=== PATIENT | male | born 1940 | race Caucasian/White ===

== ENCOUNTER 2016-09-30 13:01 | Emergency (ER) | payer MEDICARE ==
--- NOTE | 2016-09-30 15:30 | UC ---
Ear Complaint HPI - HPI Summary HPI Summary: complaint of sharp short pain in his right ear that happened 4-5 days ago every day since then he has a shoert duration spike of pain in his right ear denies any loss of hearing denies nasal congesion denies allergies denies heaadache, fever, cough - History of Current Complaint Chief Complaint: UCEar Stated Complaint: EAR COMPLAINT Time Seen by Provider: 09/30/16 14:38 Hx Obtained From: Patient - Allergies/Home Medications Allergies/Adverse Reactions: Allergies Allergy/AdvReac Type Severity Reaction Status Date / Time No Known Allergies Allergy Verified 02/09/14 11:23 Home Medications: Home Medications Calcium Carbonate-Vitamin D [Calcium 600 + D 600-400 mg-Unit] 09/30/16 [History ] Finasteride [Proscar] 5 mg 09/30/16 [History] Selegiline HCl [Eldepryl] 09/30/16 [History] PMH/Surg Hx/FS Hx/Imm Hx Previously Healthy: Yes - parkinsons disease Cardiovascular History Of: Reports: Cardiac Disorders - cholesterol Denies: Pacemaker/ICD - Surgical History Surgical History: Yes Surgery Procedure, Year, and Place: VASECTOMY,TONSILS,SKIN BIOPSY 12/06. PROSTATE BIOPSY 08/08 - Family History Known Family History: Negative: Cardiac Disease, Hypertension, Diabetes - Social History Occupation: Retired Lives: With Family Alcohol Use: None Substance Use Type: None Smoking Status (MU): Never Smoked Tobacco Review of Systems Constitutional: Negative Skin: Negative Eyes: Negative ENT: Ear Ache Respiratory: Negative Cardiovascular: Negative Gastrointestinal: Negative Genitourinary: Negative Motor: Negative Neurovascular: Negative Musculoskeletal: Negative Neurological: Negative Psychological: Negative All Other Systems Reviewed And Are Negative: Yes Physical Exam Triage Information Reviewed: Yes Appearance: No Pain Distress, Well-Nourished, Thin Vital Signs: Initial Vital Signs Temp 98.2 F 09/30/16 14:52 Pulse 63 09/30/16 14:52 Resp 18 09/30/16 14:52 BP 172/75 09/30/16 14:52 Pulse Ox 99 09/30/16 14:52 Vital Signs Reviewed: Yes Eyes: Positive: Conjunctiva Clear ENT: Positive: Pharynx normal, TMs normal, Other: - right ear canal with edema and erythema. Negative: Nasal congestion Neck: Positive: No Lymphadenopathy Respiratory: Positive: Lungs clear, Normal breath sounds, No respiratory distress Cardiovascular: Positive: RRR, No Murmur, Pulses Normal Abdomen Description: Positive: Nontender, Soft Bowel Sounds: Positive: Present Musculoskeletal: Positive: No Edema Neurological Exam: Normal Psychological Exam: Normal Skin Exam: Normal Ear Complaint Course/Dx - Differential Dx/Diagnosis Differential Diagnosis/HQI/PQRI: Cerumen Impaction, Otitis Externa, Otitis Media Provider Diagnoses: right otitis externa Discharge - Discharge Plan Condition: Stable Disposition: HOME Prescriptions: Ciproflox/Dexameth OTIC.SUSP* [Ciprodex OTIC.SUSP*] 1 drop RIGHT EAR BID #1 btl Patient Education Materials: Otitis Externa (ED) Referrals: Celio Jessica MD [Primary Care Provider] - Additional Instructions: Your blood pressure is elevated. Please contact your primary care provider within 1 day -4 weeks for further evaluation. Please take antibiotic drops as directed Increase fluids and rest Take acetaminophen for fever or pain Please review your discharge instructions. If your symptoms do not improve please call your primary care provider or return to urgent care.
[2016-09-30 15:52] VITALS: BP 165/99
== END 2016-09-30 15:53 | disposition home or self-care (01) ==
LOC: UCEAST 13:01
DX: H60.91 Unspecified otitis externa, right ear (principal); G20 Parkinson's disease
CPT/HCPCS: 99212; G0463

== ENCOUNTER 2017-02-12 09:16 | Emergency (ER) | payer MEDICARE ==
[2017-02-12 09:24] VITALS: BP 153/92
--- NOTE | 2017-02-12 09:34 | UC ---
Minor Trauma HPI - HPI Summary HPI Summary: FELL OUT OF BED LAST NIGHT. DENIES ANY HEAD INJURY OR HAWKINS. SKINNED HIS KNEEES AND HAS RIGHT RIB CAGE PAIN. CONCERNED ABOUT RIB INJURY. NO SOB, CP OR COUGH. PAIN IS WORSE WITH DEEP BREATHS, COUGH AND MOVEMENT. H/O PARKINSONS. - History of Current Complaint Chief Complaint: UCGeneralIllness Stated Complaint: FELL OUT OF BED Time Seen by Provider: 02/12/17 09:19 Hx Obtained From: Patient, Family/Auto Travel Counselor - Onset/Duration: Sudden Onset, Lasting Hours, Still Present Onset Of Pain: Immediate Pain Intensity: 0 - NO PAIN AT REST Pain Scale Used: 0-10 Numeric Mechanism Of Injury: Fall From A Standing Position - OUT OF BED Aggravating Factor(s): Coughing, Deep Breaths, Movement Alleviating Factor(s): Rest Associated Signs And Symptoms: Negative: Loss Of Consciousness, Ecchymosis - Allergies/Home Medications Allergies/Adverse Reactions: Allergies Allergy/AdvReac Type Severity Reaction Status Date / Time No Known Allergies Allergy Verified 02/12/17 09:24 Home Medications: Home Medications Carbidopa/Levodop 10/100 MG(*) [Sinemet 10/100 TAB(*)] 1.5 tab PO TID 02/12/17 [ History Confirmed 02/12/17] Donepezil TAB* [Aricept 5 MG TAB*] 5 mg PO DAILY 02/12/17 [History Confirmed ] Sennosides [Senexon] 8.8 mg PO BID 02/12/17 [History Confirmed 02/12/17] PMH/Surg Hx/FS Hx/Imm Hx Endocrine History: Dyslipidemia Other Neurological History: PARKINSONS - Surgical History Surgical History: Yes Surgery Procedure, Year, and Place: VASECTOMY,TONSILS,SKIN BIOPSY 12/06. PROSTATE BIOPSY 08/08 - Family History Known Family History: Negative: Cardiac Disease, Hypertension, Diabetes - Social History Alcohol Use: None Substance Use Type: None Smoking Status (MU): Never Smoked Tobacco Review of Systems Constitutional: Negative Skin: Other - ABRASIONS ON KNEES Respiratory: Negative Cardiovascular: Negative Gastrointestinal: Negative Musculoskeletal: Other: - RIGHT RIB CAGE PAIN Neurological: Negative All Other Systems Reviewed And Are Negative: Yes Physical Exam Triage Information Reviewed: Yes Appearance: Well-Appearing, No Pain Distress, Well-Nourished Vital Signs: Initial Vital Signs Temp 99.2 F 02/12/17 09:22 Pulse 71 02/12/17 09:22 Resp 18 02/12/17 09:22 BP 153/92 02/12/17 09:22 Pulse Ox 100 02/12/17 09:22 Vital Signs Reviewed: Yes Eyes: Positive: Conjunctiva Clear ENT: Positive: Hearing grossly normal, TMs normal Neck: Positive: Supple Respiratory: Positive: No respiratory distress, No accessory muscle use Cardiovascular: Positive: Pulses Normal Abdomen Description: Positive: Soft Musculoskeletal: Positive: No Edema, Other: - TTP RIGHT ANTEROLATERAL RIB CAGE Psychological: Positive: Normal Response To Family, Age Appropriate Behavior Skin: Positive: Other - SPFL ABRASIONS BILATERAL KNEES. NO BRUISING OVER RIB CAGE Diagnostics - Radiology RIGHT RIB XRAYS Xray Interpretation: No Acute Changes Radiology Interpretation Completed By: Radiologist Minor Trauma Course/Dx - Differential Dx/Diagnosis Provider Diagnoses: RIGHT RIB CONTUSION Discharge - Discharge Plan Condition: Stable Disposition: HOME Patient Education Materials: Rib Contusion (ED) Referrals: Celio Jessica MD [Primary Care Provider] - If Needed Additional Instructions: RIB XRAYS UNREMARKABLE TODAY. OTC MEDS NEEDED FOR DISCOMFORT. BE SURE TO TAKE DEEP BREATHS YOU ARE ABLE TO KEEP YOUR LUNGS EXPANDED. GO TO THE ER WITHOUT FAIL IF YOU DEVELOP UNEQUAL PUPILS, VISUAL DISTURBANCE, GAIT INSTABILITY, SPEECH DIFFICULTY, NAUSEA/VOMITING, WORSENING HEADACHE, DIZZINESS, CONFUSION, WEAKNESS OR ANY OTHER CONCERNING SYMPTOMS.
--- NOTE | 2017-02-12 10:01 | RAD ---
INDICATION: Fall. Right-sided rib pain. History of old rib fractures. COMPARISON: Left ribs May 20, 2000 TECHNIQUE: Multiple views of the ribs were obtained. FINDINGS: Bones: There is no evidence of acute rib fracture. LUNGS: The lungs are clear. There is no pneumothorax. Pleural spaces: There is no evidence of hemothorax. Other: None IMPRESSION: NO ACUTE RIB FRACTURE.
== END 2017-02-12 10:18 | disposition home or self-care (01) ==
LOC: UCEAST 09:16
DX: S20.20XA Contusion of thorax, unspecified, initial encounter (principal); W06.XXXA Fall from bed, initial encounter; G20 Parkinson's disease; E78.5 Hyperlipidemia, unspecified
CPT/HCPCS: 99211; G0463

== ENCOUNTER 2018-02-13 22:25 | Inpatient (IN) | payer MEDICARE ==
--- OUTSIDE RECORDS SUMMARY | 2018-02-13 23:07 | XMS REPORT ---
:1940 External Reference #:[id number] Author Organization [employer] Address [address] [place] [address] [place] [address] Phone [phone] Care Team Providers Name Role Phone Celio Jessica MD Primary Care Physician Unavailable Payers Type Date Identification Numbers Payment Provider Subscriber Medicare Primary Effective: Policy Number: Medicare Kelechi Peguero Kelton HALLMAN 2003 [id number] PayID: [id number] [address] [place] [address] Medigap Part B Effective: Policy Number: [facility] Kelechi Marielena Kelton 2012 [id number] [facility] PayID: [id number] [address] [place] [address] Commercial Policy Number: [id number] [facility] Kelechi Peguero Kelton HALLMAN PayID: [id number] [place] [address] Problems Date Description Provider Status Onset: 04/01/2014 Coronary arteriosclerosis Katharina Patton M.D. Active Onset: 04/01/2014 Pure hypercholesterolemia Katharina Patton M.D. Active Onset: 04/01/2014 Benign essential hypertension Katharina Patton M.D. Active Onset: 05/14/2014 Dizziness and giddiness Katharina Patton M.D. Active Onset: 05/14/2014 Premature beats Katharina Patton M.D. Active Onset: 07/02/2014 Parkinson's disease Andrea Weiner M.D. Active Onset: 05/12/2015 Hyperlipidemia Katharina Patton M.D. Active Onset: 05/05/2017 Essential hypertension Katharina Patton M.D. Active Onset: 01/25/2018 Prediabetes Annalisa Nails N.P. 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 ETOH Use Denies alcohol use Smoking Patient has never smoked Recreational Drug Use Denies Drug Use Daily Caffeine consumes chocolate frequently Exercise Type/Frequency Exercises regularly Allergies, Adverse Reactions, Alerts Date Description Reaction Status Severity Comments 09/04/2012 NKDA active Medications Medication Date Status Form Strength Qnty SIG Indications Ordering Provider Carbidopa-Levod 02/06/ Active Tablets ER 50-200mg 270ta 1 tab G20 Andrea SAnali opa ER 2018 bs three Regine, times a M.D. day around meal times Donepezil HCL 02/06/ Active Tablets 5mg 90tab 1 every G20 Andrea SAnali 2018 s day Eyal Weiner Myrbetriq 02/05/ Active Tablets ER 50mg 30tab 2 by mouth Annalisa 2017 24HR s every day Jesu N.P. T.E.DAnali 01/11/ Active Misc 2unit wear R60.0 Annalisa Anti-Embolism 2017 s during the Jesu Stockgiorgi Knee day, rt 40 N.P. Length cm long, 40 cm width at calf, lt 40cm long, 38 cm cm width give 2 pairs Miralax 09/29/ Active Powder 17 grams K59.00 Elsie2017 by mouth [place], every day MOLD INSPECTOR as needed Bisacodyl 10/19/ Active Suppository 10mg 12uni as needed Annalisa 2017 ts Jesu, N.P. Senna S 10/10/ Active Tablets 8.6-50mg 240ta 4 tabs by K59.00 Annalisa 2016 bs mouth Jesu, every N.P. morning and 2 tabs by mouth every night Milk Of 05/16/ Active Suspension 400mg/5ML 355ml 30ml po on K59.09 Kerwin Fritz 2015 4th day of Nauruan, no BM MOLD INSPECTOR Fleet Enema 05/16/ Active Enema 7-19GM/11 133ml 1 enema pr K59.in 2016 8ML on 5th day [place], of no BM MOLD INSPECTOR Selegiline HCL 01/07/ Active Capsules 5mg 90cap 1 by mouth Rosmery 2014 s every Gnadt, MOLD INSPECTOR morning Metoprolol 09/04/ Active Tablets ER 25mg 45tab take 1/2 Other Succinate ER 2012 24HR s tab po Ordering daily Provider Aspirin / Active Chewtabs 81mg 1 po qd Unknown 0000 Calcium 600+D / Active Tablets 600-400mg 1 po bid Andrea Gallo 0000 -Unit Eyal Weiner Finasteride / Active Tablets 5mg 90tab 1 by mouth Unknown 0000 s every day Atorvastatin / Active Tablets 20mg 1/2 tablet Unknown 0000 po daily Fish Oil / Active Capsules 1200mg 1 tab po Unknown 0000 qd Daily Chintan / Active Tablets 1 tab po Unknown 0000 qd Lisinopril / Active Tablets 5mg 0.5 tab Unknown 0000 by mouth every day Donepezil HCL 07/21/ Hx Tablets 10mg 90tab 1 by mouth G20 Andrea Gallo 2018 - s every day Regine 02/06/ Eyal 2018 Meclizine HCL 07/05/ Hx Tablets 25mg 14tab 1 tab by Freddy 2018 - s mouth q8 Slick, 02/05/ hours as M.DAnali 2018 needed dizziness Donepezil HCL 02/07/ Hx Tablets 5mg 30tab 1 every G20 Tyson 2016 - s day Dionne, 07/21/ 2018 Carbidopa-Levod 04/13/ Hx Tablets 25-100mg 135ta 1 1/2 by G20 Tyson glover 2016 - bs mouth Dionne, 02/06/ three 2018 times a day before meals Polyethylene 01/07/ Hx Powder [id number] 17gm every K59.09 Andrea Gallo Glycol 3350 2014 - day Regine 10/10/ M.Amarilis 2017 Triamcinolone 09/04/ Hx Cream 0.1% 80gm apply as 691.8 Annamarie Acetonide 2013 - needed Madan 12/31/ chau, 2015 N.P. Lisinopril 09/04/ Hx Tablets 20mg 90tab 1/4 po qd Other 2012 - s Ordering 03/12/ Provider 2014 Atorvastatin 09/04/ Hx Tablets 10mg 30tab 1/2 po qd Other Calcium 2012 - s Ordering 03/31/ Provider 2014 Multi For Him 00/00/ Hx Tablets 1 po qd Unknown 50+ 0000 - 2014 Stool Softener / Hx Capsules (?) 60cap 1 po qam Unknown 0000 - s 2013 Fish / Hx Capsules 300mg 1 by mouth Unknown Oil/Dha/Epa 0000 - every day 2014 Citrucel / Hx Powder 1tablespoo Unknown 0000 - n by mouth 01/06/ bid 2014 Miralax / Hx Packet [id number] 17 gm Unknown 0000 - every day 01/28/ as needed 2014 Salicylic Acid / Hx Cream 40% Pad Unknown 0000 - 2017 Myrbetriq / Hx Tablets ER 25mg 1 tab po Unknown 0000 - 24HR qd 2017 Medications Administered in Office Medication Date Status Form Strength Qnty SIG Indications Ordering Provider Technetium TC Administered Injection Emmanuel Olmos 99M 014 Eyal Wang, Per Unit Dose Up To 40 Millicuries Technetium TC Administered Injection Katharina 99M 014 Don Patton M.D. Per Unit Dose Up To 40 Millicuries Immunizations CPT Code Status Date Vaccine Lot # 33705 Given 04/15/2010 Influenza Virus 3Yrs & Over 57413 Given 07/08/2009 Influenza Virus Vaccine, Pandemic Formulation 03460 Given 08/21/2007 Pneumococcal Conjugate Vaccine 13 Valent For Intramuscular Use Vital Signs Date Vital Result Comment 02/06/2018 Height 68 inches 5'8" Weight 152.00 lb Heart Rate 66 /min BP Systolic 124 mmHg BP Diastolic 80 mmHg BMI (Body Mass Index) 23.1 kg/m2 02/05/2018 Heart Rate 63 /min BP Systolic Sitting 102 mmHg BP Diastolic Sitting 60 mmHg Respiratory Rate 22 /min Body Temperature 96.7 F O2 % BldC Oximetry 96 % 01/25/2018 Weight 152.12 lb Heart Rate 63 /min BP Systolic Sitting 134 mmHg BP Diastolic Sitting 80 mmHg Respiratory Rate 20 /min Body Temperature 97.4 F O2 % BldC Oximetry 99 % 01/23/2018 Weight 153.25 lb Heart Rate 66 /min BP Systolic Sitting 122 mmHg BP Diastolic Sitting 66 mmHg Respiratory Rate 20 /min Body Temperature 97.5 F O2 % BldC Oximetry 99 % 01/22/2018 Weight 149.25 lb Heart Rate 76 /min BP Systolic Sitting 88 mmHg BP Diastolic Sitting 68 mmHg Respiratory Rate 18 /min Body Temperature 97.8 F O2 % BldC Oximetry 98 % 01/11/2018 Weight 150.12 lb Heart Rate 60 /min BP Systolic Sitting 118 mmHg BP Diastolic Sitting 70 mmHg Respiratory Rate 16 /min Body Temperature 96.5 F O2 % BldC Oximetry 96 % 09/29/2017 Weight 151.38 lb Heart Rate 70 /min BP Systolic Sitting 160 mmHg BP Diastolic Sitting 90 mmHg Respiratory Rate 16 /min Body Temperature 97.3 F O2 % BldC Oximetry 100 % 07/21/2017 Height 69 inches 5'9" Weight 151.25 lb Heart Rate 70 /min BP Systolic 108 mmHg BP Diastolic 80 mmHg BMI (Body Mass Index) 22.3 kg/m2 05/05/2017 Weight 154.00 lb with shoes Heart Rate 62 /min BP Systolic Sitting 110 mmHg Lue reg cuff BP Diastolic Sitting 80 mmHg Lue reg cuff BP Systolic Standing 110 mmHg Lue reg cuff BP Diastolic Standing 84 mmHg Lue reg cuff Ejection Fraction 50-60% date 05/29/2002 ECHO 03/03/2017 Weight 155.12 lb Heart Rate 72 /min BP Systolic Sitting 110 mmHg BP Diastolic Sitting 76 mmHg Respiratory Rate 18 /min Body Temperature 96.2 F Pain Level 1 O2 % BldC Oximetry 99 % 02/07/2017 Height 69 inches 5'9" Weight 158.00 lb Heart Rate 68 /min BP Systolic Sitting 110 mmHg BP Diastolic Sitting 72 mmHg Respiratory Rate 16 /min BMI (Body Mass Index) 23.3 kg/m2 12/21/2016 Weight 156.25 lb Heart Rate 72 /min BP Systolic Sitting 100 mmHg BP Diastolic Sitting 62 mmHg Respiratory Rate 18 /min Body Temperature 97.3 F O2 % BldC Oximetry 97 % 11/22/2016 Weight 162.00 lb Heart Rate 76 /min BP Systolic Sitting 126 mmHg BP Diastolic Sitting 70 mmHg Respiratory Rate 20 /min Body Temperature 96.6 F O2 % BldC Oximetry 97 % 11/15/2016 Weight 160.25 lb Heart Rate 76 /min BP Systolic Sitting 138 mmHg BP Diastolic Sitting 84 mmHg Respiratory Rate 20 /min Body Temperature 97.6 F O2 % BldC Oximetry 98 % 10/19/2016 Weight 162.12 lb Heart Rate 63 /min BP Systolic Sitting 98 mmHg BP Diastolic Sitting 60 mmHg Respiratory Rate 20 /min Body Temperature 96.9 F O2 % BldC Oximetry 97 % 10/10/2016 Weight 162.00 lb Heart Rate 57 /min BP Systolic Sitting 114 mmHg BP Diastolic Sitting 80 mmHg Respiratory Rate 18 /min Body Temperature 96.0 F O2 % BldC Oximetry 97 % 07/15/2016 Height 69 inches 5'9" Weight 160.00 lb Heart Rate 60 /min BP Systolic Sitting 116 mmHg BP Diastolic Sitting 74 mmHg Respiratory Rate 14 /min BMI (Body Mass Index) 23.6 kg/m2 05/16/2016 Weight 159.50 lb Heart Rate 76 /min BP Systolic 138 mmHg BP Diastolic 82 mmHg Respiratory Rate 20 /min Body Temperature 97.0 F 04/13/2016 Height 68.75 inches 5'8.75" Weight 156.00 lb Heart Rate 64 /min BP Systolic Sitting 132 mmHg BP Diastolic Sitting 84 mmHg BMI (Body Mass Index) 23.2 kg/m2 03/11/2016 Weight 158.38 lb Heart Rate 58 /min BP Systolic Sitting 124 mmHg BP Diastolic Sitting 78 mmHg Respiratory Rate 18 /min Body Temperature 97.0 F O2 % BldC Oximetry 98 % 10/27/2015 Weight 158.50 lb Heart Rate 68 /min BP Systolic Sitting 128 mmHg BP Diastolic Sitting 68 mmHg Respiratory Rate 20 /min Body Temperature 96.5 F O2 % BldC Oximetry 91 % 07/07/2015 Weight 164.12 lb with shoes Heart Rate 68 /min BP Systolic Sitting 140 mmHg BP Diastolic Sitting 78 mmHg 07/07/2015 Weight 164.12 lb Heart Rate 68 /min BP Systolic Sitting 140 mmHg BP Diastolic Sitting 78 mmHg Respiratory Rate 18 /min Body Temperature 97.9 F O2 % BldC Oximetry 99 % 07/07/2015 Weight 164.12 lb Heart Rate 68 /min BP Systolic Sitting 140 mmHg BP Diastolic Sitting 78 mmHg Respiratory Rate 18 /min 07/07/2015 Height 68.75 inches 5'8.75" Weight 160.00 lb Heart Rate 64 /min BP Systolic Sitting 128 mmHg BP Diastolic Sitting 76 mmHg Respiratory Rate 16 /min BMI (Body Mass Index) 23.8 kg/m2 05/12/2015 Height 68.75 inches 5'8.75" Weight 159.00 lb w/o shoes Heart Rate 66 /min reg BP Systolic Sitting 140 mmHg Rue, reg cuff BP Diastolic Sitting 80 mmHg Rue, reg cuff BP Systolic Standing 116 mmHg Rue, reg cuff BP Diastolic Standing 74 mmHg Rue, reg cuff Respiratory Rate 16 /min BMI (Body Mass Index) 23.6 kg/m2 Ejection Fraction 50-60% as of 05/29/2002 echo 04/01/2015 Weight 159.12 lb Heart Rate 82 /min BP Systolic Sitting 106 mmHg BP Diastolic Sitting 70 mmHg Respiratory Rate 18 /min Body Temperature 97.5 F 03/24/2015 Weight 159.38 lb Heart Rate 75 /min BP Systolic Sitting 138 mmHg BP Diastolic Sitting 70 mmHg Respiratory Rate 16 /min Body Temperature 97.9 F 03/17/2015 Weight 160.12 lb Heart Rate 68 /min BP Systolic Sitting 118 mmHg BP Diastolic Sitting 74 mmHg Respiratory Rate 18 /min Body Temperature 96.3 F O2 % BldC Oximetry 98 % 01/28/2015 Weight 162.50 lb Heart Rate 58 /min BP Systolic Sitting 140 mmHg BP Diastolic Sitting 84 mmHg Respiratory Rate 16 /min Body Temperature 97.1 F 01/07/2015 Height 69 inches 5'9" Weight 164.00 lb Heart Rate 60 /min BP Systolic Sitting 136 mmHg BP Diastolic Sitting 82 mmHg Respiratory Rate 14 /min BMI (Body Mass Index) 24.2 kg/m2 12/31/2014 Weight 165.12 lb Heart Rate 62 /min BP Systolic Sitting 122 mmHg BP Diastolic Sitting 70 mmHg Respiratory Rate 16 /min Body Temperature 96.4 F 07/02/2014 Height 69 inches 5'9" Weight 168.00 lb Heart Rate 64 /min BP Systolic Sitting 136 mmHg BP Diastolic Sitting 70 mmHg Respiratory Rate 16 /min BMI (Body Mass Index) 24.8 kg/m2 05/14/2014 Height 69 inches 5'9" Weight 164.00 lb no shoes Heart Rate 65 /min BP Systolic Sitting 136 mmHg LA, reg cuff BP Diastolic Sitting 82 mmHg LA, reg cuff BP Systolic Standing 136 mmHg LA BP Diastolic Standing 84 mmHg LA Respiratory Rate 16 /min BMI (Body Mass Index) 24.2 kg/m2 04/01/2014 Height 69 inches Weight 164.00 lb without shoes Heart Rate 64 /min BP Systolic Sitting 128 mmHg Ra reg cuff BP Diastolic Sitting 70 mmHg Ra reg cuff BP Systolic Standing 112 mmHg Ra reg cuff BP Diastolic Standing 68 mmHg Ra reg cuff Respiratory Rate 16 /min BMI (Body Mass Index) 24.2 kg/m2 01/01/2014 Height 69 inches 5'9" Weight 163.00 lb Heart Rate 60 /min BP Systolic Sitting 126 mmHg BP Diastolic Sitting 70 mmHg Respiratory Rate 12 /min BMI (Body Mass Index) 24.1 kg/m2 08/29/2013 Heart Rate 78 /min BP Systolic 118 mmHg BP Diastolic 72 mmHg Respiratory Rate 20 /min Body Temperature 97.2 F 07/03/2013 Heart Rate 60 /min BP Systolic Sitting 134 mmHg BP Diastolic Sitting 78 mmHg Respiratory Rate 12 /min 03/12/2013 Height 69 inches 5'9" Weight 166.00 lb Heart Rate 63 /min BP Systolic 116 mmHg BP Diastolic 74 mmHg Respiratory Rate 16 /min Body Temperature 96.4 F BMI (Body Mass Index) 24.5 kg/m2 01/01/2013 Heart Rate 66 /min BP Systolic Sitting 120 mmHg BP Diastolic Sitting 74 mmHg Respiratory Rate 15 /min 12/14/2012 Height 69 inches 5'9" Weight 165.00 lb Heart Rate 76 /min BP Systolic 118 mmHg BP Diastolic 70 mmHg Respiratory Rate 12 /min BMI (Body Mass Index) 24.4 kg/m2 10/02/2012 Height 69 inches 5'9" Weight 165.00 lb Heart Rate 77 /min BP Systolic 110 mmHg BP Diastolic 70 mmHg Respiratory Rate 20 /min Body Temperature 95.9 F BMI (Body Mass Index) 24.4 kg/m2 09/04/2012 Heart Rate 64 /min Apical BP Systolic Sitting 92 mmHg BP Diastolic Sitting 68 mmHg Respiratory Rate 18 /min Body Temperature 97.6 F Results Test Date Test Result H/L Range Note CBC Auto Diff 01/22/2018 White Blood Count 8.4 10^3/uL 3.5-10.8 1 Red Blood Count 4.59 10^6/uL 4.00-5.40 1 Hemoglobin 13.9 g/dL Low 14.0-18.0 1 Hematocrit 40 % Low 42-52 1 Mean Corpuscular Volume 88 fL 80-94 1 Mean Corpuscular Hemoglobin 30 pg 27-31 1 Mean Corpuscular HGB Conc 35 g/dL 31-36 1 Red Cell Distribution Width 13 % 10.5-15 1 Platelet Count 258 10^3/uL 150-450 1 Mean Platelet Volume 8.7 um3 7.4-10.4 1 Abs Neutrophils 5.5 10^3/uL 1.5-7.7 1 Abs Lymphocytes 1.9 10^3/uL 1.0-4.8 1 Abs Monocytes 0.9 10^3/uL High 0-0.8 1 Abs Eosinophils 0.1 10^3/uL 0-0.6 1 Abs Basophils 0.1 10^3/uL 0-0.2 1 Abs Nucleated RBC 0 10^3/uL 1 Granulocyte % 65.5 % 38-83 1 Lymphocyte % 22.4 % Low 25-47 1 Monocyte % 10.2 % High 0-7 1 Eosinophil % 1.3 % 0-6 1 Basophil % 0.6 % 0-2 1 Nucleated Red Blood Cells % 0.1 1 Urinalysis Profile 01/22/2018 Urine Color Jada 1 Urine Appearance Clear 1 Urine Specific [place] 1.021 1.010-1.030 1 Urine pH 5.0 5-9 1 Urine Urobilinogen Negative Negative 1 Urine Ketones Trace Negative 1 Urine Protein Negative Negative 1 Urine Leukocytes Negative Negative 1 Urine Blood Negative Negative 1 Urine Nitrite Negative Negative 1 Urine Bilirubin Negative Negative 1 Urine Glucose Negative Negative 1 Laboratory test finding 01/22/2018 PSA Screening 2.790 ng/mL 0-4.000 1, 2 Comp Metabolic Panel 01/22/2018 Sodium 140 mmol/L 135-145 1 Potassium 4.5 mmol/L 3.5-5.0 1 Chloride 101 mmol/L 101-111 1 Co2 Carbon Dioxide 33 mmol/L High 22-32 1 Anion Gap 6 mmol/L 2-11 1 Glucose 74 mg/dL 70-100 1 Blood Urea Nitrogen 24 mg/dL 6-24 1 Creatinine 1.27 mg/dL High 0.67-1.17 1 BUN/Creatinine Ratio 18.9 8-20 1 Calcium 9.9 mg/dL 8.6-10.3 1 Total Protein 6.7 g/dL 6.4-8.9 1 Albumin 4.4 g/dL 3.2-5.2 1 Globulin 2.3 g/dL 2-4 1 Albumin/Globulin Ratio 1.9 1-3 1 Total Bilirubin 0.70 mg/dL 0.2-1.0 1 Alkaline Phosphatase 53 U/L 34-104 1 Alt 7 U/L 7-52 1 Ast 26 U/L 13-39 1 Egfr Non- 54.7 >60 1 Egfr 66.2 >60 1, 3 Laboratory test finding 01/22/2018 TSH (Thyroid Stim 1.49 mcIU/mL 0.34- 5.60 1, 4 Horm) Hemoglobin A1c (Glyco HGB) 5.7 % High 4.0-5.6 1, 5 Urine Culture And Sensitivities 01/22/2018 Urine Culture SEE RESULT BELOW 1, 6 Urinalysis Profile 07/07/2015 Urine Color Yellow Urine Appearance Clear Urine Specific [place] 1.010 1.010-1.030 Urine pH 6.0 5-9 Urine Urobilinogen Negative Negative Urine Ketones Negative Negative Urine Protein Negative Negative Urine Leukocytes Negative Negative Urine Blood Negative Negative Urine Nitrite Negative Negative Urine Bilirubin Negative Negative Urine Glucose Negative Negative Laboratory test finding 07/07/2015 Urine Culture And SEE RESULT BELOW 7 Sensitivities Laboratory test finding 03/17/2015 Culture Throat SEE RESULT BELOW 8 Urinalysis Profile 02/04/2015 Urine Color Yellow Urine Appearance Clear Urine Specific [place] 1.019 1.010-1.030 Urine pH 7.0 5-9 Urine Urobilinogen Negative Negative Urine Ketones Negative Negative Urine Protein Negative Negative Urine Leukocytes Negative Negative Urine Blood Negative Negative Urine Nitrite Negative Negative Urine Bilirubin Negative Negative Urine Glucose Negative Negative Laboratory test finding 01/28/2015 Urine Culture And SEE RESULT BELOW 9 Sensitivities Urinalysis Profile 01/28/2015 Urine Color Yellow Urine Appearance Clear Urine Specific [place] 1.011 1.010-1.030 Urine pH 6.0 5-9 Urine Urobilinogen Negative Negative Urine Ketones Negative Negative Urine Protein Negative Negative Urine Leukocytes Negative Negative Urine Blood Negative Negative Urine Nitrite Negative Negative Urine Bilirubin Negative Negative Urine Glucose Negative Negative Laboratory test finding 12/14/2012 Vitamin B12 446 pg/mL 180-914 TSH (Thyroid Stimulating Horm) 1.37 miu/mL 0.34-5.60 Lyme Disease Serology Negative Negative 10 Immunofixation (Electro) Serum 12/14/2012 Albumin (Pep) 3.19 g/dL 3.0- 4.35 Alpha 1 Globulins 0.19 g/dL 0.09-0.33 Alpha 2 Globulin 0.77 g/dL 0.59-1.18 Beta Globulin 0.61 g/dL Low 0.68-1.02 Gamma Globulin 1.24 g/dL 0.76-1.60 Albumin % (Pep) 53.2 % 46-63 Alpha 1 Globulins % 3.2 % 1.2-5.3 Alpha 2 Globulin % 12.8 % 9-17 Beta Globulin % 10.2 % 10-16 Gamma Globulin % 20.7 % 12-22 Albumin/Globulin Ratio 1.1 0.9-2.0 Total Protein (Pep) 6.0 g/dL Low 6.2-8.1 Spep Comments (SEE NOTE) 11 Serum Immunofixation (SEE NOTE) 12 1 [id number] 2 Serum levels of PSA measured using the Prisca Columbia DXI Hybritech immunoassay should not be interpreted as absolute evidence of the presence or absence of disease. The PSA value should be used in conjunction with other pertinent clinical diagnostic procedures. The values obtained with different assay methods or kits cannot be used interchangeably. 3 Because ethnic data is not always readily available, this report includes an eGFR for both -Americans and non- Americans. The National Kidney Disease Education Program (NKDEP) does not endorse the use of the MDRD equation for patients that are not between the ages of 18 and 70, are , have extremes of body size, muscle mass, or nutritional status, or are non- or non-. According to the National Kidney Foundation, irrespective of diagnosis, the stage of the disease is based on the level of kidney function: Stage Description GFR(mL/min/1.73 m(2)) 1 Kidney damage with normal or decreased GFR 90 2 Kidney damage with mild decrease in GFR 60-89 3 Moderate decrease in GFR 30-59 4 Severe decrease in GFR 15-29 5 Kidney failure <15 (or dialysis) 4 [id number] 5 Therapeutic target for the treatment of diabetes mellitus patients is <7% HBA1C, and in selective patients <6.0%. Please refer to [place] Diabetes Association diabetic care guidelines for further information. 6 SEE RESULT BELOW Name: KELECHI MELARA : [address]: Annalisa Nails NP Acct: [id number] Unit: [id number] AGE: 77 Location: [facility] Re01/22/18 SEX: M Status: REG REF SPEC: [id number] MESSI: 01/22/18-[address]: Annalisa Nails NP REQ: [id number] RECD: 01/22/18160 STATUS: COMP _ SOURCE: URINE SPDESC: ORDERED: Urine Culture COMMENTS: [id number] QUERIES: Urine Source: Random Procedure Result Reported Site Urine Culture Final 01/23/18- 1614 ML No Growth (<1,000 CFU/mL) * ML - Main Lab . END OF REPORT DEPARTMENT OF PATHOLOGY, [address] [place] [address] Armand Hinkle M.D. Director [facility] # [id number] 7 SEE RESULT BELOW Name: KELECHI MELARA JR : [address]: Annalisa Nails NP Acct: [id number] Unit: [id number] AGE: 75 Location: [facility] Re07/07/15 SEX: M Status: REG REF SPEC: [id number] MESSI: 07/07/15-1415 [facility] DR: Annalisa Nails NP REQ: [id number] RECD: 07/07/15 STATUS: MAK TEIXEIRA DR: Katherine _ SOURCE: URINE SPDESC: ORDERED: Urine Culture Procedure Result Reported Site Urine Culture Final 07/09/15- 1100 ML No Growth (<1,000 CFU/mL) * ML - [facility] ([facility]) . END OF REPORT * ML=Testing performed at Main Lab DEPARTMENT OF PATHOLOGY, [address] [place] [address] Armand Hinkle M.D. Director [facility] # [id number] 8 SEE RESULT BELOW Name: KELECHI MELARA JR : [address]: Annalisa Nails NP Acct: [id number] Unit: [id number] AGE: 74 Location: [facility] Re03/17/15 SEX: M Status: REG REF SPEC: [id number] MESSI: 03/17/15-[address]: Annalisa Nails NP REQ: [id number] RECD: 03/17/15 STATUS: COMP _ SOURCE: THROAT SPDESC: ORDERED: Throat Culture Procedure Result Verified Site Throat Culture Final 03/19/15- 835 ML Organism 1 NORMAL BOBY Quantity 3+ * ML - MAIN LAB ([facility]) . END OF REPORT * ML=Testing performed at Main Lab DEPARTMENT OF PATHOLOGY, [address] [place] [address] Armand Hinkle M.D. Director [facility] # [id number] 9 SEE RESULT BELOW Name: KELTON JRKELECHI C : [address]: Annalisa Nails NP Acct: [id number] Unit: [id number] AGE: 74 Location: [facility] Re01/28/15 SEX: M Status: REG REF SPEC: [id number] MESSI: 01/28/15-[address]: Annalisa Nails NP REQ: [id number] RECD: 01/28/15-1223 STATUS: MAK TEIXEIRA DR: Katherine _ SOURCE: URINE SPDESC: ORDERED: Urine Culture Procedure Result Verified Site Urine Culture Final 01/30/15- 1037 ML No Growth Day 2 (<1,000 CFU/mL) * ML - MAIN LAB ([facility]) . END OF REPORT * ML=Testing performed at Main Lab DEPARTMENT OF PATHOLOGY, [address] [place] [address] Armand Hinkle M.D. Director [facility] # [id number] 10 Serologic response to B. burgdorferi infection is not detected, but cannot rule out early infection during which low or undetectable antibody levels to B. burgdorferi may be present. If clinically indicated, a new serum specimen should be submitted in 7-14 days. Test Performed by: [address] [address] [place] Catcher: Huey Khan III, M.D. 11 DECREASED BETA GLOBULIN 12 Normal serum immunofixation electrophoretic pattern. No monoclonal protein detected. Procedures Date CPT Code Description Status 05/05/2017 52239 EKG Tracing & Interpretation Completed 05/12/2015 46296 EKG Tracing & Interpretation Completed 04/01/2015 22911 Remove Impacted Cerumen Completed 05/07/2014 13156 Stress Test Completed 05/07/2014 65058 Myocardial Perfusion Imaging Tomographic (Spect) Completed Multiple Studies 05/07/2014 51751 Myocardial Perfusion Imaging Tomographic (Spect) Completed Multiple Studies 04/22/2014 44995 Stress Test Completed 04/01/2014 99371 EKG Tracing & Interpretation Completed 05/15/2012 92847 EKG Tracing & Interpretation Completed 05/01/2012 69359 Stress Test Completed 05/11/2011 00193 Remove Impacted Cerumen Completed Encounters Type Date Location Provider CPT E/M Dx Office Visit 02/05/2018 9:29a [facility] Annalisa Nails N.P. 74030 N39.44 G20 Office Visit 02/01/2018 8:21a [facility] Annalisa Nails N.P. 56751 N39.44 Office Visit 01/25/2018 8:14a [facility] Annalisa Nails N.P. 35107 R73.03 N39.44 Office Visit 01/23/2018 8:26a [facility] Annalisa Jesu, N.P. 00160 N39.44 Office Visit 01/22/2018 12:23p [facility] Annalisa Jesu, N.P. 90656 R80.9 R32 Office Visit 01/11/2018 11:05a [facility] Annalisa Jesu N.P. 11768 R60.0 Office Visit 09/29/2017 8:00a [facility] Elsie Gayle, MOLD INSPECTOR 59870 K59.00 G20 I10 Office Visit 07/21/2017 3:15p [facility] Andrea Weiner, 97976 G20 Eyal G47.52 G31.84 Office Visit 06/27/2017 7:59a [facility] Angella Carney, MOLD INSPECTOR 16458 R42 Office Visit 05/05/2017 9:45a [facility] Katharina Patton M.D. 06240 I25.10 [facility] I10 E78.00 Office Visit 03/03/2017 8:47a [facility] Elsie Gayle, MOLD INSPECTOR 75139 W19.xxxA G20 R41.89 Office Visit 02/07/2017 8:30a [facility] Andrea Weiner, 33923 G20 Services Of Demetrio Birch R41.89 Office Visit 12/21/2016 11:28a [facility] Annalisakamar Nails N.P. 97175 M54.32 Office Visit 11/22/2016 11:18a [facility] Annalisa Nails N.P. 97477 K59.00 Office Visit 11/15/2016 10:45a [facility] Annalisakamar Nails, N.P. 40362 K59.00 Office Visit 10/19/2016 11:27a [facility] Annalisa Nails N.P. 05981 K59.00 Office Visit 10/10/2016 10:19a [facility] Annalisa Nails N.P. 49474 K59.00 Office Visit 07/15/2016 11:15a [facility] Adnrea Weiner, 39656 G20 Services Of Demetrio Birch Office Visit 05/16/2016 9:00a [facility] Kerwin Patiño, MOLD INSPECTOR 29215 K59.09 G20 Office Visit 04/13/2016 9:30a [facility] Andrea Gallo 17194 G20 Eyal Weiner Office Visit 03/11/2016 9:00a [facility] Annalisa Nails, 26652 H11.31 N.P. Office Visit 02/26/2016 8:30a [facility] Kerwin Patiño, 91758 H81.10 MOLD INSPECTOR Office Visit 10/27/2015 11:49a [facility] Annalisa Nails, 66760 R19.5 N.P. Office Visit 07/07/2015 10:30a [facility] Andrea Gallo 75312 G20 Services Of Demetrio Weiner M.D. Office Visit 07/07/2015 9:28a [facility] Annalisa Nails, 79285 S39.012A N.P. S39.012A Office Visit 05/12/2015 9:00a [facility] Katharina Patton M.D. 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 52892 H61.23 J02.9 J02.9 H61.23 Office Visit 03/17/2015 11:46a [facility] Annalisa Stricklandll, N.P. 09175 G20 J02.9 J02.9 G20 Office Visit 01/07/2015 10:45a [facility] Andrea Weiner, 86038 332.0 Services Of Demetrio Birch Office Visit 12/31/2014 1:35p [facility] Annalisakamar Nails, N.P. 50748 709.2 709.2 Office Visit 07/02/2014 11:45a [facility] Andrea Wiener 24937 332.0 Services Of Demetrio Birch Office Visit 05/14/2014 9:15a [facility] Michelle Patton M.D. 24170 780.4 [facility] 427.60 414.01 Office Visit 04/01/2014 9:45a [facility] Katharina Patton M.D. 95819 414.01 [facility] 272.0 401.1 780.4 Office Visit 01/01/2014 1:45p [facility] Andrea Weiner, 54459 332.0 Services Of City Distribution Clerk M.D. Office Visit 08/29/2013 11:52a [facility] Annamarie 30194 V58.32 Yusef, N.P. 782.8 V58.31 Office Visit 07/03/2013 9:45a [facility] Andrea SilviaAnali Weiner, 57998 332.0 Services Of City Distribution Clerk M.D. Office Visit 03/12/2013 11:39a [facility] Annamarie 94186 917.2 Mariaa-Reece, N.P. Office Visit 01/01/2013 10:00a [facility] Andrea Weiner, 96162 332.0 Services Of [facility] M.D. 724.3 Office Visit 12/14/2012 8:45a [facility] Andrea Weiner, 39778 332.0 Services Of [facility] M.D. 724.3 782.0 781.2 Office Visit 10/02/2012 10:04a [facility] Annamarie Holbrook, 86304 356.8 Home N.P. Office Visit 09/04/2012 10:27a [facility] Annamarie Holbrook, 26720 691.8 Home N.P. Office Visit 05/15/2012 3:15p [facility] Katharina Patton M.D. 56284 786.50 Of [facility] 414.01 Office Visit 06/03/2011 10:40a [facility] Annamarie Holbrook 40146 V58.31 Home N.P. Office Visit 05/06/2011 10:20a [facility] Annamarie Holbrook 64223 388.70 Home N.P. Office Visit 01/13/2011 1:00p [facility] Annalisa Nails N.P. 18153 719.47 Home Office Visit 12/02/2010 9:00a [facility] Jud Vazquez M.D. 16836 709.9 Home Office Visit 11/23/2010 9:00a [facility] Jud Vazquez M.D. 10150 350.2 Home Plan of Care Future Appointment(s):05/15/2018 9:30 am - Andrea Weiner M.D. at [facility] [id number]/06/2018 - Andrea Weiner M.D.G20 Parkinson's diseaseNew Medication:Carbidopa-Levodopa ER 50-200 mgDonepezil HCL 5 mgFollow up :3-4 monthsRecommendations:switch carbidopa/levodopa to extended release 200/50 three times a day decrease donepezil to 5 mg aday and take in the AMG31.84 Mild cognitive impairment, so statedNew Labs:Vitamin G75Lgqcrjoppavrn Acid MmaRecommendations:if your blood tests are normal we will get an MRI scan of the brain
--- NOTE | 2018-02-13 23:11 | ED ---
Lower Extremity - HPI Summary HPI Summary: Patient with history of falls complains of mechanical fall today with subsequent right hip pain and left ball of the foot pain. Denies head injury, LOC, N/V, EMS, facial or oral trauma, neck pain, back pain, chest wall pain, abdominal pain, bilateral upper extremity pain, fever, cough, sore throat, CP, SOB, N/V/D, abdominal pain, change in urine, change in BM. Medical history is HDL, Parkinson's, CAD. - History of Current Complaint Chief Complaint: EDHipPelvisInjury Stated Complaint: FALL Time Seen by Provider: 02/13/18 22:47 Hx Obtained From: Patient Mechanism Of Injury: Fall From A Standing Position Onset of Pain: Immediate Onset/Duration: Hours Severity Initially: Moderate Severity Currently: Moderate Pain Intensity: 8 Pain Scale Used: 0-10 Numeric Timing: Constant Location: Is Discrete @ Character Of Pain: Aching, Throbbing Associated Signs And Symptoms: Positive: Negative Aggravating Factor(s): Movement Alleviating Factor(s): Rest Able to Bear Weight: Yes - Allergies/Home Medications Allergies/Adverse Reactions: Allergies Allergy/AdvReac Type Severity Reaction Status Date / Time No Known Allergies Allergy Verified 02/12/17 09:24 PMH/Surg Hx/FS Hx/Imm Hx Endocrine/Hematology History: Denies: Hx Diabetes Cardiovascular History: Reports: Hx Hypertension - ON MEDICATION Denies: Hx Pacemaker/ICD Respiratory History: Denies: Hx Asthma History: Denies: Hx Renal Disease Sensory History: Denies: Hx Hearing Aid Psychiatric History: Denies: Hx Panic Disorder - Cancer History Cancer Type, Location and Year: SKIN - Surgical History Surgery Procedure, Year, and Place: VASECTOMY, TONSILS, SKIN BIOPSY 12/06, PROSTATE BIOPSY 08/08, DENTAL SURGERY, Infectious Disease History: No Infectious Disease History: Denies: Traveled Outside the [place] in Last 30 Days - Family History Known Family History: Negative: Cardiac Disease, Hypertension, Diabetes - Social History Alcohol Use: None Substance Use Type: Reports: None Smoking Status (MU): Never Smoked Tobacco Review of Systems Constitutional: Negative Eyes: Negative ENT: Negative Cardiovascular: Negative Respiratory: Negative Gastrointestinal: Negative Genitourinary: Negative Musculoskeletal: Other Skin: Other Neurological: Negative Psychological: Normal All Other Systems Reviewed And Are Negative: Yes Physical Exam - Summary Physical Exam Summary: No difference in length of bilateral legs. No internal or external rotation of right leg. Mild pain with palpation of right hip. No pain with palpation of right knee, right ankle right foot, left knee, left hip, left ankle. Mild tenderness to palpation of left lower foot, no obvious deformity, swelling, ecchymosis, extra warmth. No pain with palpation of chest wall, abdomen, bilateral upper extremities, head, face. No evidence of oral trauma. Patient alert and oriented. Triage Information Reviewed: Yes Vital Signs On Initial Exam: Initial Vitals Temp Pulse Resp BP Pulse Ox 99.3 F 77 13 202/106 98 02/13/18 22:47 02/13/18 22:47 02/13/18 22:47 02/13/18 22:47 02/13/18 22:47 Vital Signs Reviewed: Yes Appearance: Positive: Well-Appearing Skin: Positive: Warm Head/Face: Positive: Normal Head/Face Inspection Eyes: Positive: Normal ENT: Positive: Normal ENT inspection Neck: Positive: Supple Respiratory/Lung Sounds: Positive: Clear to Auscultation Cardiovascular: Positive: Normal Abdomen Description: Positive: Nontender Musculoskeletal: Positive: Normal Neurological: Positive: Normal Psychiatric: Positive: Normal AVPU Assessment: Alert - Blair Coma Scale Best Eye Response: 4 - Spontaneous Best Motor Response: 6 - Obeys Commands Best Verbal Response: 5 - Oriented Coma Scale Total: 15 Diagnostics - Vital Signs Vital Signs Temp Pulse Resp BP Pulse Ox 02/13/18 22:47 99.3 F 77 13 202/106 98 - Laboratory Result Diagrams: 02/13/18 23:44 02/13/18 23:44 Lab Statement: Any lab studies that have been ordered have been reviewed, and results considered in the medical decision making process. - Radiology hip Xray Interpretation: Positive (See Comments) - Possible right femoral neck fracture Radiology Interpretation Completed By: ED Physician - CT pelvis CT Interpretation: Positive (See Comments) - Right femoral neck fracture CT Interpretation Completed By: Radiologist Lower Extremity Course/Dx - Course Course Of Treatment: Patient with history of falls complains of mechanical fall today with subsequent right hip pain and left ball of the foot pain. Denies head injury, LOC, N/V, EMS, facial or oral trauma, neck pain, back pain, chest wall pain, abdominal pain, bilateral upper extremity pain, fever, cough, sore throat, CP, SOB, N/V/D, abdominal pain, change in urine, change in BM. Medical history is HDL, Parkinson's, CAD. Physical exam:No difference in length of bilateral legs. No internal or external rotation of right leg. Mild pain with palpation of right hip. No pain with palpation of right knee, right ankle right foot, left knee, left hip, left ankle. Mild tenderness to palpation of left lower foot, no obvious deformity, swelling, ecchymosis, extra warmth. No pain with palpation of chest wall, abdomen, bilateral upper extremities, head, face. No evidence of oral trauma. Patient alert and oriented. Vital signs within normal limits and stable. Mildly elevated white count. CT positive for right femoral neck fracture. Discussed patient with ortho Dr Horner who recommended admission by hospitalist, and he will follow-up in the morning. - Diagnoses Provider Diagnoses: Fall, Fracture of femoral neck, right Discharge - Sign-Out/Discharge Documenting (check all that apply): Patient Departure - Discharge Plan Condition: Stable Disposition: ADMITTED TO [facility] Referrals: Celio Jessica MD [Primary Care Provider] - - Billing Disposition and Condition Condition: STABLE Disposition: Admitted to [facility]
[2018-02-13 23:57] LABS: ABS Basophils 0.1 10^3/ul (0-0.2); ABS Eosinophils 0.5 10^3/ul (0-0.6); ABS Lymphocytes 1.6 10^3/ul (1.0-4.8); ABS Monocytes 1.4 10^3/ul (0-0.8); ABS Neutrophils 7.5 10^3/ul (1.5-7.7); ABS Nucleated RBC 0 10^3/ul; Eosinophil % 4.6 % (0-6); Hematocrit 40 % (42-52); Hemoglobin 13.7 g/dl (14.0-18.0); Lymphocyte % 14.7 % (25-47); Mean Corpuscular HGB Conc 34 g/dl (31-36); Mean Corpuscular Hemoglobin 30 pg (27-31); Mean Corpuscular Volume 89 fL (80-94); Mean Platelet Volume 7.9 um3 (7.4-10.4); Nucleated Red Blood Cells % 0.1; Platelet Count 226 10^3/ul (150-450); Red Blood Count 4.51 10^6/ul (4.00-5.40); Red Cell Distribution Width 13 % (10.5-15); White Blood Count 11.1 10^3/ul (3.5-10.8)
[2018-02-14 00:07] LABS: INR 1.06 (0.77-1.02)
[2018-02-14 00:14] LABS: EGFR Non-African American 57.8 (>60)
--- NOTE | 2018-02-14 02:21 | RAD ---
EXAM: CT Pelvis Without Intravenous Contrast CLINICAL HISTORY: 77 years old, male; Injury or trauma; Injury Fall R/O right hip fracture; Initial encounter; Swelling; Additional info: Fall, rt hip pain, hip fracture? TECHNIQUE: Axial computed tomography images of the pelvis without intravenous contrast. All CT scans at this facility use at least one of these dose optimization techniques: automated exposure control; mA and/or kV adjustment per patient size (includes targeted exams where dose is matched to clinical indication); or iterative reconstruction. Coronal and sagittal reformatted images were created and reviewed. COMPARISON: No relevant prior studies available. FINDINGS: Bones/joints: Acute transverse fracture through the proximal right femoral neck which is mildly impacted. Minimal anterior angulation. No additional fractures. Mild bilateral hip joint space loss with associated acetabular osteophytes. The spine demonstrates mild degenerative changes at multiple levels. Soft tissues: Normal. No hernias. Vasculature: The vasculature demonstrates diffuse mild atherosclerotic calcification. Stomach and bowel: Visualized small bowel is normal in caliber. No masses or segmental wall thickening of the colon. Bladder: Circumferential wall thickening of the urinary bladder. No reticular stranding. No stones. Reproductive: Mildly enlarged prostate. Normal seminal vesicles. IMPRESSION: 1. Acute traumatic right femoral neck fracture. 2. Mild prostatomegaly and findings of associated bladder outlet obstruction.
[2018-02-14] MEDS ORDERED: HYDROmorphone INJ1* 1 MG/ML SYRINGE IV PRN (03:00)
[2018-02-14] MEDS ORDERED: Ondansetron ODT TAB* 4 MG PO PRN (03:00)
[2018-02-14] MEDS ORDERED: Melatonin 3 MG TAB PO PRN (03:00)
--- NOTE | 2018-02-14 05:05 | HP ---
H&P (Free Text) History and Physical: PCP: Corrina Jessica MD Date/Time: 02/14/2018 0250 CC: fall/R hip pain HPI: Mr Cronin is a 77YO male poor historian whose baseline mental status reportedly varies from oriented to periodic confusion He has a HX Parkinsonism, dementia, HTN, HLD who from which it is difficult to get a solid story consistently reports he was walking outside earlier today when he went to push the branches of a sumner out of the way and subsequently fell landing on his R hip and experiencing pain. He denies hitting his head or losing consciousness. The pain did not improve and so he presented for evaluation which has revealed a non-displaced R femoral neck fracture. Dr Evens MD orthopedic surgery was notified by ED and will evaluate in the AM. Mr Cronin denies recent chest pain, SOB with exertion, F/C, or other issues. PMedHx Parkinsonism HTN HLD BPH dementia Ambulatory Orders Nursing to reconcile. Aspirin [Aspir 81] 81 mg PO DAILY 04/01/14 Atorvastatin Calcium 10 mg PO DAILY 04/01/14 Lisinopril [Prinivil TAB 20 MG-] 2.5 mg PO DAILY 04/01/14 Metoprolol Tartrate 12.5 mg PO DAILY 04/01/14 Calcium Carbonate-Vitamin D [Calcium 600 + D 600-400 mg-Unit] 1 tab PO BID 09/30 Finasteride [Proscar] 5 mg PO DAILY 09/30/16 Selegiline HCl [Eldepryl] 5 mg PO DAILY 09/30/16 Carbidopa/Levodop 10/100 MG(*) [Sinemet 10/100 TAB(*)] 1.5 tab PO TID 02/12/17 Donepezil TAB* [Aricept 5 MG TAB*] 5 mg PO DAILY 02/12/17 Sennosides [Senexon] 8.8 mg PO BID 02/12/17 Allergies No Known Allergies Allergy (Verified 02/12/17 09:24) PSurgHx tonsillectomy vasectomy SocHx: denies HX tobacco, alcohol, or recreational drugs; full code status FamHx: reviewed, non-contributory to presentation ROS: as above, otherwise reviewed and all were negative vitals: Vital Signs Temp 36.5 C 02/14/18 04:18 Pulse 71 02/14/18 04:18 Resp 20 08/22/18 04:18 BP 165/97 02/14/18 04:18 Pulse Ox 100 02/14/18 04:18 Intake & Output 02/13/18 02/13/18 02/14/18 11:59 23:59 11:59 Weight 68.039 kg Constitutional: NAD, normally developed, well-nourished elderly white male HEENM: atraumatic; sclera/conjunctiva: anicteric/clear; hearing: clinically mildly decreased; oropharynx: clear, mucosa moist Neck: soft tissue: non-tender; thyroid: normal Pulmonary: clear to auscultation bilaterally, good aeration, no accessory muscle use CV: RR/RR, normal S1S2, no carotid bruit, no jugular venous distention, 1+ B DP/ PT, 2+ BLE edema Abdominal: soft, non-distended, non-tender, no rebound/guarding/rigidity, normoactive bowel sounds, no hepatosplenomegaly or masses, no costovertebral angle tenderness Musculoskeletal: general: grossly intact, no internal/external rotation or shortening Integumental: normal appearance and texture of exposed skin Psychiatric orientation: AA&O to PP, loosely to situation affect: calm/fatigued mood: cooperative eye contact: fair to poor content: somewhat reliable responses: mildly slowed insight: fair Testing: Lab Results 02/13/18 02/13/18 02/13/18 Range/Units 23:44 23:44 23:45 WBC 11.1 H (3.5-10.8) 10^3/ul RBC 4.51 (4.00-5.40) 10^6/ul Hgb 13.7 L (14.0-18.0) g/dl Hct 40 L (42-52) % MCV 89 (80-94) fL MCH 30 (27-31) pg MCHC 34 (31-36) g/dl RDW 13 (10.5-15) % Plt Count 226 (150-450) 10^3/ul MPV 7.9 (7.4-10.4) um3 Neut % (Auto) 67.7 (38-83) % Lymph % (Auto) 14.7 L (25-47) % [place] % (Auto) 12.4 H (0-7) % Eos % (Auto) 4.6 (0-6) % Baso % (Auto) 0.6 (0-2) % Absolute Neuts (auto) 7.5 (1.5-7.7) 10^3/ul Absolute Lymphs (auto) 1.6 (1.0-4.8) 10^3/ul Absolute Monos (auto) 1.4 H (0-0.8) 10^3/ul Absolute Eos (auto) 0.5 (0-0.6) 10^3/ul Absolute Basos (auto) 0.1 (0-0.2) 10^3/ul Absolute Nucleated RBC 0 10^3/ul Nucleated RBC % 0.1 INR (Anticoag Therapy) 1.06 H (0.77-1.02) APTT 33.9 (26.0-36.3) seconds Sodium 139 (135-145) mmol/L Potassium 3.9 (3.5-5.0) mmol/L Chloride 101 (101-111) mmol/L Carbon Dioxide 31 (22-32) mmol/L Anion Gap 7 (2-11) mmol/L BUN 20 (6-24) mg/dL Creatinine 1.21 H (0.67-1.17) mg/dL Est GFR ( Amer) 70.0 (>60) Est GFR (Non-Af Amer) 57.8 (>60) BUN/Creatinine Ratio 16.5 (8-20) Glucose 96 (70-100) mg/dL Calcium 9.6 (8.6-10.3) mg/dL Total Bilirubin 0.60 (0.2-1.0) mg/dL AST 27 (13-39) U/L ALT 15 (7-52) U/L Alkaline Phosphatase 70 (34-104) U/L Troponin I (<0.04) ng/mL C-Reactive Protein 26.77 H (<8.01) mg/L Total Protein 6.7 (6.4-8.9) g/dL Albumin 4.1 (3.2-5.2) g/dL Globulin 2.6 (2-4) g/dL Albumin/Globulin Ratio 1.6 (1-3) 02/14/18 Range/Units 02:43 WBC (3.5-10.8) 10^3/ul RBC (4.00-5.40) 10^6/ul Hgb (14.0-18.0) g/dl Hct (42-52) % MCV (80-94) fL MCH (27-31) pg MCHC (31-36) g/dl RDW (10.5-15) % Plt Count (150-450) 10^3/ul MPV (7.4-10.4) um3 Neut % (Auto) (38-83) % Lymph % (Auto) (25-47) % [place] % (Auto) (0-7) % Eos % (Auto) (0-6) % Baso % (Auto) (0-2) % Absolute Neuts (auto) (1.5-7.7) 10^3/ul Absolute Lymphs (auto) (1.0-4.8) 10^3/ul Absolute Monos (auto) (0-0.8) 10^3/ul Absolute Eos (auto) (0-0.6) 10^3/ul Absolute Basos (auto) (0-0.2) 10^3/ul Absolute Nucleated RBC 10^3/ul Nucleated RBC % INR (Anticoag Therapy) (0.77-1.02) APTT (26.0-36.3) seconds Sodium (135-145) mmol/L Potassium (3.5-5.0) mmol/L Chloride (101-111) mmol/L Carbon Dioxide (22-32) mmol/L Anion Gap (2-11) mmol/L BUN (6-24) mg/dL Creatinine (0.67-1.17) mg/dL Est GFR ( Amer) (>60) Est GFR (Non-Af Amer) (>60) BUN/Creatinine Ratio (8-20) Glucose (70-100) mg/dL Calcium (8.6-10.3) mg/dL Total Bilirubin (0.2-1.0) mg/dL AST (13-39) U/L ALT (7-52) U/L Alkaline Phosphatase (34-104) U/L Troponin I 0.03 (<0.04) ng/mL C-Reactive Protein (<8.01) mg/L Total Protein (6.4-8.9) g/dL Albumin (3.2-5.2) g/dL Globulin (2-4) g/dL Albumin/Globulin Ratio (1-3) ECG, personally reviewed: NSR rate 69, no ischemia CT pelvis, personally reviewed: IMPRESSION: 1. Acute traumatic right femoral neck fracture. 2. Mild prostatomegaly and findings of associated bladder outlet obstruction. Impression: 77M HX Parkinsonism, dementia, HTN, HLD DIAGNOSIS & PLAN Primary non-displaced R femoral neck FX : Dandre Horner MD orthopedic surgery consulted, will evaluate in AM : pain control : NPO x/ meds w/ sips water : bedrest : supportive care Secondary Parkinsonism : continue carbi/levodopa once reconciled HTN : continue lisinopril & metoprolol once reconciled HLD : continue atorvastatin once reconciled BPH : continue finasteride once reconciled dementia : continue selegiline & donepezil once reconciled Admission Rational: inpatient for surgical management of R hip FX; inappropriate for outpatient setting DVTp: SCDs, heparin SQ post-op Code Status: full HCP: , Gin
[2018-02-14] MEDS: NS 0.9% 1000 ML* 1,000 ML IV SCH (06:13)
[2018-02-14] MEDS: Omeprazole CAP* 20 MG PO SCH (06:15)
[2018-02-14 06:24] LABS: Urine Appearance Clear; Urine Blood 2+ (Negative); Urine Color Straw; Urine Ketones Negative (Negative); Urine Protein Negative (Negative); Urine Red Blood Cell 1+(3-5/hpf) (Absent); Urine Specific Gravity 1.006 (1.010-1.030); Urine Urobilinogen Negative (Negative); Urine White Blood Cell Trace(0-5/hpf) (Absent)
[2018-02-14] MEDS: Docusate CAP* 100 MG PO SCH ×2 (07:51→21:16)
[2018-02-14] MEDS: Metoprolol Succinate XL TAB* 25 MG PO SCH (07:51)
[2018-02-14] MEDS: Carbidopa/Levodop 10/100 MG TAB(*) PO SCH ×3 (07:52→21:16)
[2018-02-14] MEDS: Selegiline TAB* 5 MG PO SCH (07:52)
--- NOTE | 2018-02-14 08:14 | RAD ---
INDICATION: Right hip pain after a fall COMPARISON: None TECHNIQUE: 2 views of each hip and an AP view of the pelvis were obtained. FINDINGS: Depicted on the AP and lateral views of the right hip, there is a faint lucent line oriented horizontally at the right femoral neck. Remaining visualized bones are otherwise intact and appropriately aligned. Degenerative changes of the bilateral hips include mild sclerotic change of the acetabular roofs with mild marginal osteophyte formation. IMPRESSION: Suspected nondisplaced right femoral neck fracture. This can be confirmed with CT if clinically warranted. R1
--- NOTE | 2018-02-14 08:21 | RAD ---
Indication: Right hip pain after a fall Comparison: Hip radiograph February 13, 2018 that demonstrates a nondisplaced right femoral neck fracture Technique: 5 views right femur. Report: Again seen is a minimally impacted nondisplaced fracture at the right femoral neck. The remainder of the right femur is intact and appropriately aligned. There is no right knee joint effusion. IMPRESSION: Nondisplaced right femoral neck fracture. R1
--- NOTE | 2018-02-14 09:31 | PN ---
Subjective Date of Service: 02/14/18 Interval History: Patient reports minimal pain today. Denies other symptoms. Denies F/C, N/V, abdominal pain, CP, SOB, dizziness, palpitations, or other pain. Patient is not a reliable historian. Patient thinks that he fell again this AM. Per patient has been having hallucinations over the course of several weeks and was scheduled for a Brain MRI tomorrow. Family History: Unchanged from Admission Social History: Unchanged from Admission Past Medical History: Unchanged from Admission Objective Active Medications: Acetaminophen (Tylenol Tab*) 650 mg PO Q6H PRN PRN Reason: FEVER/PAIN Carbidopa/Levodopa (Sinemet 10/100 Tab(*)) 1.5 tab PO TID [facility] Last Admin: 02/14/18 07:52 Dose: 1.5 tab Docusate Sodium (Colace Cap*) 200 mg PO BID [facility] Last Admin: 02/14/18 07:51 Dose: 200 mg Hydromorphone HCl (Dilaudid Inj1s*) 0.5 mg IV Q2H PRN PRN Reason: PAIN Sodium Chloride (Ns 0.9% 1000 Ml*) 1,000 mls @ 75 mls/hr IV PER RATE [facility] Last Admin: 02/14/18 06:13 Dose: 75 mls/hr Melatonin (Melatonin) 3 mg PO BEDTIME PRN; Protocol PRN Reason: Sleep Metoprolol Succinate (Toprol Xl Tab*) 25 mg PO DAILY [facility] Last Admin: 02/14/18 07:51 Dose: 25 mg Omeprazole (Prilosec Cap*) 20 mg PO DAILY@0600 [facility] Last Admin: 02/14/18 06:15 Dose: 20 mg Ondansetron HCl (Zofran Odt Tab*) 4 mg PO Q6H PRN PRN Reason: n/v Selegiline HCl (Eldepryl Tab*) 5 mg PO DAILY [facility] Last Admin: 02/14/18 07:52 Dose: 5 mg Vital Signs - 8 hr 02/14/18 02/14/18 02/14/18 02:00 02:35 02:45 Temperature Pulse Rate 69 72 67 Respiratory 21 12 Rate Blood Pressure 204/106 173/94 (mmHg) O2 Sat by Pulse 98 100 100 Oximetry 02/14/18 02/14/18 02/14/18 02:48 03:00 03:19 Temperature Pulse Rate 69 68 65 Respiratory 13 Rate Blood Pressure 165/97 172/127 (mmHg) O2 Sat by Pulse 99 99 99 Oximetry 02/14/18 02/14/18 02/14/18 03:50 04:00 04:18 Temperature 97.7 F Pulse Rate 70 66 71 Respiratory 13 14 20 Rate Blood Pressure 187/93 165/97 (mmHg) O2 Sat by Pulse 96 100 Oximetry 02/14/18 02/14/18 02/14/18 04:48 05:00 05:25 Temperature 98.1 F Pulse Rate 69 68 73 Respiratory 18 16 18 Rate Blood Pressure 180/94 186/95 (mmHg) O2 Sat by Pulse 97 97 100 Oximetry 02/14/18 02/14/18 02/14/18 05:31 07:20 07:33 Temperature 98.1 F 98.0 F Pulse Rate 73 69 Respiratory 18 20 Rate Blood Pressure 186/95 174/69 (mmHg) O2 Sat by Pulse 100 100 Oximetry Oxygen Devices in Use Now: None Appearance: Patient is a 77yo male who appears stated age and is sitting in the bed in NAD. Eyes: No Scleral Icterus, PERRLA Ears/Nose/Mouth/Throat: NL Teeth, Lips, Gums, Clear Oropharnyx, Mucous Membranes Moist Neck: NL Appearance and Movements; NL JVP, Trachea Midline Respiratory: Symmetrical Chest Expansion and Respiratory Effort, Clear to Auscultation Cardiovascular: NL Sounds; No Murmurs; No JVD, RRR, No Edema Abdominal: NL Sounds; No Tenderness; No Distention, No Hepatosplenomegaly Lymphatic: No Cervical Adenopathy Extremities: No Edema, No Clubbing, Cyanosis, - - No deformity or tenderness. Skin: No Rash or Ulcers, No Nodules or Sclerosis Neurological: NL Muscle Strength and Tone, - - Cogwheeling with tremor in B/L UE. Patient is A/Ox1. Result Diagrams: 02/13/18 23:44 02/13/18 23:44 Assess/Plan/Problems-Billing Assessment: Patient is a 77yo male with a PMH for Parkinson's disease, HTN, and BPH who presents after a mechanical fall with suffering a hip fracture and is inpatient for possible surgical fixation of hip. - Patient Problems (1) Nondisplaced fracture of right femur Current Visit: Yes Status: Acute Code(s): S72.91XA - UNSP FRACTURE OF RIGHT FEMUR, INIT FOR CLOS FX SNOMED Code(s): 06403985 Comment: Appreciate Orthopedic input. Patient and who is HCP are amenable for surgery. Patient is a low risk for a moderate risk surgery. RCRI is 0 representing a .4% risk of a major cardiac event. Patient has no cardiac history and EKG and Troponin are unremarkable. No further testing is necessary preoperatively. Will continue Metoprolol and hold lisinopril preoperatively. Continue Sinemet and Selegiline perioperatively. Avoid Synthetic opoids intraoperatively due to MAOI. (2) Parkinsons disease Current Visit: Yes Status: Acute Code(s): G20 - PARKINSON'S DISEASE SNOMED Code(s): 27632966 Comment: Has been worsening for several weeks with hallucinations. Was scheduled for MRI brain tomorrow. Continue Simemet and Seligiline at home dose. MMA ordered by neurologist but results not available. (3) HTN (hypertension) Current Visit: Yes Status: Acute Code(s): I10 - ESSENTIAL (PRIMARY) HYPERTENSION SNOMED Code(s): 73017621 Comment: Normotensive. Continue metoprolol and hold lisinopril. (4) DVT prophylaxis Current Visit: Yes Status: Acute Code(s): ZUO2996 - SNOMED Code(s): 315976563 Comment: SCDs and Heparin postoperatively. (5) Full code status Current Visit: Yes Status: Acute Code(s): Z78.9 - OTHER SPECIFIED HEALTH STATUS SNOMED Code(s): 027824435 Status and Disposition: Inpatient.
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
[2018-02-14] MEDS ORDERED: HYDROmorphone INJ* 0.5 MG/0.5 ML SYRINGE ONE (12:36)
[2018-02-14] MEDS ORDERED: KETAMINE HCL* 50 MG/ML 10 ML VIAL ONE (13:15)
[2018-02-14] MEDS ORDERED: Dexamethasone IV* 4 MG/ML 1 ML (4 MG) ONE (13:15)
[2018-02-14] MEDS ORDERED: Propofol* 10 MG/ML 20 ML BTL IV PUSH ONE (13:15)
[2018-02-14] MEDS ORDERED: Lidocaine 2% PF * 5 ML VIAL ONE (13:15)
[2018-02-14] MEDS ORDERED: fentaNYL* 50 MCG/ML 2 ML VIAL (100 MCG VIAL) ONE (13:15)
[2018-02-14] MEDS ORDERED: Ketorolac INJ* 30 MG/ML 1 ML VIAL ONE (13:15)
[2018-02-14] MEDS ORDERED: Midazolam* 1 MG/ML 2 ML VIAL (2 MG) ONE (13:15)
[2018-02-14] MEDS ORDERED: Phenylephrine INJ* 10 MG/ML 1 ML VIAL (10 MG) ONE (13:15)
[2018-02-14] MEDS ORDERED: ceFAZolin 2 GM PREMIX (*) 2 GM/50 ML BAG IVPB ONE (14:13)
[2018-02-14] MEDS ORDERED: ROPIVACAINE 5 MG/ML 30 ML BTL (0.5%) ONE (14:14)
--- NOTE | 2018-02-14 16:13 | RAD ---
CPT II Codes: G9500 INDICATION: Right hip fracture, internal fixation. Fluoroscopic services provided for referring physician. 57.2 seconds of fluoroscopy time was used. 5 spot images demonstrates placement of 3 pins into the right hip. IMPRESSION: Fluoroscopic services provided for referring physician for right hip pinning.
[2018-02-14] MEDS ORDERED: Enalaprilat IV* 1.25 MG/ML 2 ML VIAL (2.5 MG) ONE (16:42)
[2018-02-14] MEDS ORDERED: traMADol TAB* 50 MG PO PRN (16:42)
--- NOTE | 2018-02-14 20:03 | CONS ---
AMENDED REPORT NOW INCLUDES DATE OF CONSULT ORTHOPEDIC CONSULT NOTE: DATE OF CONSULT: 02/14/18 CHIEF COMPLAINT: Right hip pain. HISTORY OF PRESENT ILLNESS: Mr. Cronin is a 77-year-old demented male who had a fall yesterday on 02/13/18. He had increasing pain and difficulty weightbearing. He was seen at the emergency room in [facility] and a femoral neck fracture on the right side was identified. He was admitted by the hospitalist team and optimized for surgery. He was initially seen by Dr. Horner , my partner. I agreed to take the patient to the operating room for cannulated screw fixation of his right femoral neck fracture. The patient was examined at the bedside by me. He reports 8/10 intermittent pain in the right groin with weightbearing. He reports he has had several falls over the last few months. His history is questionable due to the dementia. PAST MEDICAL HISTORY: Dementia, Parkinson's disease, hypertension, hyperlipidemia, BPH. PAST SURGICAL HISTORY: Tonsillectomy and vasectomy. MEDICATIONS: Home medications: 1. Aspirin 81 mg p.o. daily. 2. Atorvastatin 10 mg p.o. q.h.s. 3. Lisinopril 20 mg p.o. daily. 4. Metoprolol 12.5 mg p.o. daily. 5. Calcium carbonate and vitamin D 600/400 one tablet p.o. b.i.d. 6. Proscar 5 mg p.o. daily. 7. Eldepryl 5 mg p.o. daily. 8. Carbidopa/levodopa 10/100 one and half tablets p.o. t.i.d. 9. Aricept 5 mg p.o. daily. 10. Senexon 8.8 mg p.o. b.i.d. ALLERGIES: No known allergies. FAMILY HISTORY: Negative. SOCIAL HISTORY: The patient lives with his and is normally an independent ambulator. He has had multiple recent falls. No tobacco, alcohol, or recreational drug use. REVIEW OF SYSTEMS: Fourteen systems reviewed with the patient today. Positive for right hip pain. He denies fevers, chills, chest pain, shortness of breath. His also denies this. Otherwise, review of systems seems to be negative or not relevant. PHYSICAL EXAM: Vitals: Temperature 96.8, heart rate 56, blood pressure 181/ 97. General: The patient is a thin male, in no apparent distress, alert and oriented x3, pleasant mood and appropriate affect. Gait: The patient's gait is not assessed. Chest: Unlabored breathing. Right lower extremity: The patient's skin is intact. No abrasions or open wounds. He has pain with any flexion of the hip distally. He can dorsiflex and plantarflex. Full sensation to light touch in all nerve distributions and 2+ palpable DP pulse. DIAGNOSTIC STUDIES/LAB DATA: Radiographs: Plain films as well as CT scan are reviewed, which show a minimally displaced and impacted femoral neck fracture of the right hip. Studies: Recent labs from 02/13/18 show white blood cells 11.1, hematocrit 40, platelets 226. INR 1.06. Sodium 139, potassium 3.9, BUN and creatinine 20 and 1.21. CRP 26. Troponin 0.03. ASSESSMENT AND PLAN: Mr. Cronin is a 77-year-old gentleman with dementia and Parkinson's disease, who has multiple falls. He presented on 02/13/18 with difficulty ambulating. He was found to have a minimally displaced femoral neck fracture. I discussed the surgical and nonsurgical options with the patient and his over the phone. The patient's would like to proceed with surgical fixation and the patient also relays that he would like to proceed with surgical fixation of the femoral neck fracture. Risks of the surgery are discussed with the patient. He understands the risks include, but are not limited to, bleeding, infection, damage to nearby structures, continued pain, need for further surgery, failure of the hardware, avascular necrosis of the femoral head, posttraumatic arthritis, stroke, heart attack, blood clot, and . He wishes to proceed. The patient's wishes to proceed and gives phone consent and nurse acts as a second witness. For now, the patient will be on bedrest until the surgery. He is n.p.o. We will plan to take him to the next available operating room for open reduction and internal fixation with 3 cannulated screws. Thank you for this orthopedic consultation. [id number]/[facility] #: [id number] [facility]
[2018-02-14 20:41] LABS: EGFR Non-African American 76.5 (>60)
[2018-02-14] MEDS: Lisinopril TAB* 5 MG PO SCH (21:15)
[2018-02-14] MEDS: ceFAZolin 1 GM ADVAN(*) 1 GM in NS 0.9% 50 ML* 50 ML IVPB SCH (22:29)
--- NOTE | 2018-02-14 23:48 | OP ---
DATE OF OPERATION: 02/14/18 - ROOM #337 DATE OF : 36 SURGEON: Estefanía Mcclellan MD. ANESTHESIOLOGIST: Dr. Moreno. ANESTHESIA: General. PRE-OP DIAGNOSIS: Right minimally displaced femoral neck fracture. POST-OP DIAGNOSIS: Right minimally displaced femoral neck fracture. OPERATIVE PROCEDURE: Cannulated screw fixation of the right femoral neck fracture/open reduction and internal fixation. ESTIMATED BLOOD LOSS: 50 cc. COMPLICATIONS: None. SPECIMEN: None. HARDWARE: Three 7.0 cannulated screws with short threads were used, these were length 95 mm, 95 mm, and 90 mm. BRIEF HISTORY/INDICATIONS: Mr. Cronin is a 77-year-old gentleman who had a fall in his home on 02/13/18. He was unable to bear weight and had right hip pain. He was brought to [facility] Emergency Room and diagnosed with a minimally displaced femoral neck fracture. The patient did wish to have surgical fixation of this fracture and his agreed. He was medically optimized for surgery. They both understand the risk of surgery include, but are not limited to bleeding, infection, damage to nearby structures, continued pain, need for further surgery, failure of the hardware fixation, avascular necrosis of the femoral head, posttraumatic osteoarthritis, stroke, heart attack , blood clot, and . He wished to proceed. INTRAOPERATIVE FINDINGS: Intraoperatively, the patient's femoral neck fracture had some impaction and minimal displacement. DESCRIPTION OF PROCEDURE: Mr. Cronin was identified in the preanesthesia unit. His right lower extremity was marked as the correct operative side. The patient has dementia, therefore, informed consent was obtained with a witness through his . His is his healthcare proxy. The patient was taken to the operating room and placed under general anesthesia. A Hdez catheter was placed. He was placed on the fracture table. Right lower extremity was placed in the fracture boot, but traction was not applied. The leg was slightly adducted and internally rotated. Left lower extremity was placed in the lithotomy position with adequate padding. AP and lateral C-arm views were obtained to confirm that the fracture had remained reduced enough to place cannulated screws. There was some minimal displacement noted on the x-ray, but the decision was made to proceed with cannulated screw fixation of the fracture. The right lower extremity was prepped and draped in the usual sterile fashion. Preop time-out was made to correctly identify the patient's side and site. Appropriate perioperative antibiotics were given within 1 hour of incision. A 4 cm lateral incision was made between the lesser and greater troch longitudinally. Electrocautery was used to carefully dissect down to the bone. A Alejo elevator was used to clear some soft tissue off the lateral bone. Using AP and lateral C-arm guidance, the inferior guidewire was placed along the femoral neck in a central position into the femoral head. The guidewire proper placement was confirmed. Next, the triangulation guide was used to place 2 superior guidewires in an inverted triangular fashion. Satisfactory placement of the guidewire was confirmed on both AP and lateral C-arm views. The lateral cortex was predrilled for all 3 wires. The wires were measured at 95 mm, 95 mm, and 90 mm. Partially threaded cannulated 7.0 screws were chosen. These were carefully placed over the guidewires. Guidewires were removed. Final AP and C-arm views showed satisfactory placement of the cannulated screws. The fracture reduction had not been lost. The lateral incision was copiously irrigated with sterile saline. The fascial layer was closed using interrupted #1 Vicryl. The rest of the incisions were closed in a layered fashion using 0 and 2-0 Vicryls. Skin was closed using running 3-0 Monocryl and Dermabond. Sterile Adaptic, 4x4s, and paper tape were used to cover the incision. The patient's anesthesia was reversed without difficulty. He was taken to the PACU in stable condition. Intended weightbearing will be weightbearing as tolerated. Intended DVT prophylaxis will be Lovenox. [id number]/[facility] #: [id number] [facility]
[2018-02-15] MEDS: NS 0.9% 1000 ML* 1,000 ML IV SCH (02:25)
[2018-02-15 06:01] LABS: ABS Basophils 0 10^3/ul (0-0.2); ABS Eosinophils 0 10^3/ul (0-0.6); ABS Lymphocytes 1.3 10^3/ul (1.0-4.8); ABS Monocytes 1.1 10^3/ul (0-0.8); ABS Neutrophils 10.8 10^3/ul (1.5-7.7); ABS Nucleated RBC 0 10^3/ul; Eosinophil % 0.1 % (0-6); Hematocrit 41 % (42-52); Mean Corpuscular HGB Conc 34 g/dl (31-36); Mean Corpuscular Hemoglobin 30 pg (27-31); Mean Corpuscular Volume 88 fL (80-94); Nucleated Red Blood Cells % 0; Platelet Count 273 10^3/ul (150-450); Red Blood Count 4.65 10^6/ul (4.00-5.40); Red Cell Distribution Width 13 % (10.5-15); White Blood Count 13.3 10^3/ul (3.5-10.8)
[2018-02-15 06:27] LABS: EGFR Non-African American 69.7 (>60)
[2018-02-15] MEDS: Omeprazole CAP* 20 MG PO SCH (06:33)
[2018-02-15] MEDS: ceFAZolin 1 GM ADVAN(*) 1 GM in NS 0.9% 50 ML* 50 ML IVPB SCH ×2 (06:35→14:18)
[2018-02-15] MEDS: Selegiline TAB* 5 MG PO SCH (08:31)
[2018-02-15] MEDS: Docusate CAP* 100 MG PO SCH ×2 (08:31→21:52)
[2018-02-15] MEDS: Metoprolol Succinate XL TAB* 25 MG PO SCH (08:32)
[2018-02-15] MEDS: Acetaminophen TAB* 325 MG PO PRN (08:32)
[2018-02-15] MEDS: Carbidopa/Levodop 10/100 MG TAB(*) PO SCH ×3 (08:32→21:54)
--- NOTE | 2018-02-15 10:40 | PN ---
Progress Note - Progress Note Date of Service: 02/15/18 SOAP: Subjective: [] Patient seen and examined at bedside. He feels well without chest pain, shortness of breath, nausea or dizziness. Objective: []General: Well appearing, NAD. Alert and answering questions appropriately, though slow to respond RLE: Dressing CDI, thigh soft, DF/PF intact, DP1+, cap refill less than two seconds distally BL calves supple and nontender without erythema, edema or palpable cords Assessment: []POD 1 sp cannulated crew fixation R femoral neck fracture Plan: []WBAT PT/OT Lovenox 40 mg sq qd x 30 days Dry sterile dressing change daily starting 02/16 Vital Signs Temp 97.4 F 02/15/18 06:58 Pulse 73 02/15/18 06:58 Resp 18 02/15/18 08:00 BP 150/76 02/15/18 06:58 Pulse Ox 99 02/15/18 06:58 Intake & Output 02/14/18 02/15/18 02/15/18 18:59 06:59 18:59 Intake Total 800 350 Output Total 1850 450 250 Balance -1050 -100 -250 Weight 150 lb Intake: IV Fluids 800 lr 800 Oral 350 Output: Hdez 1850 450 250 Other: Estimated Void Small Medium Laboratory Last Values WBC 13.3 10^3/ul (3.5-10.8) H 02/15/18 05:34 RBC 4.65 10^6/ul (4.00-5.40) 02/15/18 05:34 Hgb 14.0 g/dl (14.0-18.0) 02/15/18 05:34 Hct 41 % (42-52) L 02/15/18 05:34 MCV 88 fL (80-94) 02/15/18 05:34 MCH 30 pg (27-31) 02/15/18 05:34 MCHC 34 g/dl (31-36) 02/15/18 05:34 RDW 13 % (10.5-15) 02/15/18 05:34 Plt Count 273 10^3/ul (150-450) 02/15/18 05:34 MPV 8.0 um3 (7.4-10.4) 02/15/18 05:34 Neut % (Auto) 81.1 % (38-83) 02/15/18 05:34 Lymph % (Auto) 10.0 % (25-47) L 02/15/18 05:34 [place] % (Auto) 8.6 % (0-7) H 02/15/18 05:34 Eos % (Auto) 0.1 % (0-6) 02/15/18 05:34 Baso % (Auto) 0.2 % (0-2) 02/15/18 05:34 Absolute Neuts (auto) 10.8 10^3/ul (1.5-7.7) H 02/15/18 05:34 Absolute Lymphs (auto) 1.3 10^3/ul (1.0-4.8) 02/15/18 05:34 Absolute Monos (auto) 1.1 10^3/ul (0-0.8) H 02/15/18 05:34 Absolute Eos (auto) 0 10^3/ul (0-0.6) 02/15/18 05:34 Absolute Basos (auto) 0 10^3/ul (0-0.2) 02/15/18 05:34 Absolute Nucleated RBC 0 10^3/ul 02/15/18 05:34 Nucleated RBC % 0 02/15/18 05:34 INR (Anticoag Therapy) 1.06 (0.77-1.02) H 02/13/18 23:45 APTT 33.9 seconds (26.0-36.3) 02/13/18 23:45 Sodium 138 mmol/L (135-145) 02/15/18 05:34 Potassium 4.5 mmol/L (3.5-5.0) 02/15/18 05:34 Chloride 102 mmol/L (101-111) 02/15/18 05:34 Carbon Dioxide 26 mmol/L (22-32) 02/15/18 05:34 Anion Gap 10 mmol/L (2-11) 02/15/18 05:34 BUN 19 mg/dL (6-24) 02/15/18 05:34 Creatinine 1.03 mg/dL (0.67-1.17) 02/15/18 05:34 Est GFR ( Amer) 84.3 (>60) 02/15/18 05:34 Est GFR (Non-Af Amer) 69.7 (>60) 02/15/18 05:34 BUN/Creatinine Ratio 18.4 (8-20) 02/15/18 05:34 Glucose 129 mg/dL (70-100) H 02/15/18 05:34 Calcium 9.0 mg/dL (8.6-10.3) 02/15/18 05:34 Magnesium 2.0 mg/dL (1.9-2.7) 02/15/18 05:34 Total Bilirubin 0.60 mg/dL (0.2-1.0) 02/13/18 23:44 AST 27 U/L (13-39) 02/13/18 23:44 ALT 15 U/L (7-52) 02/13/18 23:44 Alkaline Phosphatase 70 U/L (34-104) 02/13/18 23:44 Troponin I 0.03 ng/mL (<0.04) 02/14/18 02:43 C-Reactive Protein 26.77 mg/L (<8.01) H 02/13/18 23:44 B-Natriuretic Peptide 60 pg/mL (-100) 02/13/18 23:42 Total Protein 6.7 g/dL (6.4-8.9) 02/13/18 23:44 Albumin 4.1 g/dL (3.2-5.2) 02/13/18 23:44 Globulin 2.6 g/dL (2-4) 02/13/18 23:44 Albumin/Globulin Ratio 1.6 (1-3) 02/13/18 23:44 Urine Color Straw 02/14/18 06:07 Urine Appearance Clear 02/14/18 06:07 Urine pH 7.0 (5-9) 02/14/18 06:07 Ur Specific [place] 1.006 (1.010-1.030) L 02/14/18 06:07 Urine Protein Negative (Negative) 02/14/18 06:07 Urine Ketones Negative (Negative) 02/14/18 06:07 Urine Blood 2+ (Negative) A 02/14/18 06:07 Urine Nitrate Negative (Negative) 02/14/18 06:07 Urine Bilirubin Negative (Negative) 02/14/18 06:07 Urine Urobilinogen Negative (Negative) 02/14/18 06:07 Ur Leukocyte Esterase Negative (Negative) 02/14/18 06:07 Urine WBC (Auto) Trace(0-5/hpf) (Absent) 02/14/18 06:07 Urine RBC (Auto) 1+(3-5/hpf) (Absent) A 02/14/18 06:07 Urine Bacteria Absent (Absent) 02/14/18 06:07 Urine Glucose Negative (Negative) 02/14/18 06:07
[2018-02-15] MEDS: Enoxaparin(*) 40 MG/0.4 ML SYR SUBCUT SCH (11:54)
[2018-02-15] MEDS ORDERED: Heparin VIAL(*) 5000 UNITS/ML VIAL (FIVE THOUSAND) SUBCUT SCH (14:00)
--- NOTE | 2018-02-15 14:52 | PN ---
Subjective Date of Service: 02/15/18 Interval History: Patient is persistently confused. Patient is unaware of condition, place, date. Patient denies pain, Dizziness, CP, SOB, N/V, F/C, abdominal pain, diarrhea, Constipation, or other pain. Hdez in place with Clear Yellow Urine. Discussed disposition with and she is amenable to [facility] or [facility]. Patient's is concerned about delay in MRI. Family History: Unchanged from Admission Social History: Unchanged from Admission Past Medical History: Unchanged from Admission Objective Active Medications: Acetaminophen (Tylenol Tab*) 650 mg PO Q6H PRN PRN Reason: FEVER/PAIN Last Admin: 02/15/18 08:32 Dose: 650 mg Carbidopa/Levodopa (Sinemet 10/100 Tab(*)) 1.5 tab PO TID [facility] Last Admin: 02/15/18 14:17 Dose: 1.5 tab Docusate Sodium (Colace Cap*) 200 mg PO BID [facility] Last Admin: 02/15/18 08:31 Dose: 200 mg Enoxaparin Sodium (Lovenox(*)) 40 mg SUBCUT Q24H [facility] Last Admin: 02/15/18 11:54 Dose: 40 mg Hydromorphone HCl (Dilaudid Inj1s*) 0.5 mg IV Q2H PRN PRN Reason: PAIN Last Admin: 02/14/18 12:37 Dose: 0.5 mg Sodium Chloride (Ns 0.9% 1000 Ml*) 1,000 mls @ 75 mls/hr IV PER RATE [facility] Last Admin: 02/15/18 02:25 Dose: 75 mls/hr Lisinopril (Prinivil Tab*) 2.5 mg PO QPM [facility] Last Admin: 02/14/18 21:15 Dose: 2.5 mg Melatonin (Melatonin) 3 mg PO BEDTIME PRN; Protocol PRN Reason: Sleep Metoprolol Succinate (Toprol Xl Tab*) 25 mg PO DAILY [facility] Last Admin: 02/15/18 08:32 Dose: 25 mg Omeprazole (Prilosec Cap*) 20 mg PO DAILY@0600 [facility] Last Admin: 02/15/18 06:33 Dose: 20 mg Ondansetron HCl (Zofran Odt Tab*) 4 mg PO Q6H PRN PRN Reason: n/v Selegiline HCl (Eldepryl Tab*) 5 mg PO DAILY [facility] Last Admin: 02/15/18 08:31 Dose: 5 mg Tramadol HCl (Ultram*) 50 mg PO Q8H PRN PRN Reason: PAIN - SEVERE Vital Signs - 8 hr 02/15/18 02/15/18 06:58 08:00 Temperature 97.4 F Pulse Rate 73 Respiratory 16 18 Rate Blood Pressure 150/76 (mmHg) O2 Sat by Pulse 99 Oximetry Oxygen Devices in Use Now: None Appearance: Patient is a 77yo male who appears stated age and is sitting in the bed in NAD. Eyes: No Scleral Icterus, PERRLA Ears/Nose/Mouth/Throat: NL Teeth, Lips, Gums, Clear Oropharnyx, Mucous Membranes Moist Neck: NL Appearance and Movements; NL JVP, Trachea Midline Respiratory: Symmetrical Chest Expansion and Respiratory Effort, Clear to Auscultation Cardiovascular: NL Sounds; No Murmurs; No JVD, RRR, No Edema Abdominal: NL Sounds; No Tenderness; No Distention, No Hepatosplenomegaly Lymphatic: No Cervical Adenopathy Extremities: No Clubbing, Cyanosis, - - No Deformity. CDI incision on right leg. Skin: No Rash or Ulcers, No Nodules or Sclerosis Neurological: NL Sensation, - - Cogwheeling, Tremor. Result Diagrams: 02/15/18 05:34 02/15/18 05:34 Microbiology and Other Data: Microbiology 02/14/18 06:07 Urine Culture - Final Urine No Growth (<1,000 CFU/mL) Assess/Plan/Problems-Billing Assessment: Patient is a 77yo male with a PMH for Parkinson's disease, HTN, and BPH who presents after a mechanical fall with suffering a hip fracture and is inpatient for possible surgical fixation of hip. - Patient Problems (1) Nondisplaced fracture of right femur Current Visit: Yes Status: Acute Code(s): S72.91XA - UNSP FRACTURE OF RIGHT FEMUR, INIT FOR CLOS FX SNOMED Code(s): 35875638 Comment: Appreciate Orthopedic input. From Mechanical Fall due to wandering. Avoid Synthetic opoids intraoperatively due to MAOI. Continue DVT prophylaxis with Lovenox. H/H stable. Bowel meds and Pain control. PT/OT, will likely need rehab. Possibly at [facility]. (2) Parkinsons disease Current Visit: Yes Status: Acute Code(s): G20 - PARKINSON'S DISEASE SNOMED Code(s): 80329919 Comment: Has been worsening for several weeks with hallucinations. Was scheduled for MRI brain. Will do when back at [facility]. Continue Simemet and Seligiline at home dose. MMA ordered by neurologist but results not available. Concern for cerebrovascular disease by [facility] [employer]. On aspirin, no focal deficits. MRI at this time would not change managment as patient would be a poor candidate for DAPT plus Lovenox. Lipid profile Excellent. (3) HTN (hypertension) Current Visit: Yes Status: Acute Code(s): I10 - ESSENTIAL (PRIMARY) HYPERTENSION SNOMED Code(s): 23825944 Comment: Normotensive. Continue metoprolol and hold lisinopril. (4) DVT prophylaxis Current Visit: Yes Status: Acute Code(s): GJK8703 - SNOMED Code(s): 081207828 Comment: Lovenox (5) Full code status Current Visit: Yes Status: Acute Code(s): Z78.9 - OTHER SPECIFIED HEALTH STATUS SNOMED Code(s): 920880364 Status and Disposition: Inpatient. Will need rehab.
[2018-02-15] MEDS ORDERED: Senna TAB PO PRN (14:59)
[2018-02-15] MEDS ORDERED: Polyethylene Glycol 3350* 17 GM PACKET PO PRN (14:59)
[2018-02-15] MEDS: Lisinopril TAB* 5 MG PO SCH (17:55)
[2018-02-16] MEDS: Omeprazole CAP* 20 MG PO SCH (06:39)
[2018-02-16 06:59] LABS: ABS Basophils 0 10^3/ul (0-0.2); ABS Eosinophils 0.3 10^3/ul (0-0.6); ABS Monocytes 1.3 10^3/ul (0-0.8); ABS Neutrophils 7.5 10^3/ul (1.5-7.7); ABS Nucleated RBC 0 10^3/ul; Eosinophil % 2.3 % (0-6); Hematocrit 39 % (42-52); Hemoglobin 13.4 g/dl (14.0-18.0); Mean Corpuscular HGB Conc 34 g/dl (31-36); Mean Corpuscular Hemoglobin 30 pg (27-31); Mean Corpuscular Volume 88 fL (80-94); Mean Platelet Volume 7.9 um3 (7.4-10.4); Nucleated Red Blood Cells % 0; Platelet Count 282 10^3/ul (150-450); Red Blood Count 4.49 10^6/ul (4.00-5.40); Red Cell Distribution Width 13 % (10.5-15); White Blood Count 11.1 10^3/ul (3.5-10.8)
[2018-02-16 07:21] LABS: EGFR Non-African American 69.7 (>60)
[2018-02-16] MEDS: Carbidopa/Levodop 10/100 MG TAB(*) PO SCH (08:07)
[2018-02-16] MEDS: Selegiline TAB* 5 MG PO SCH (08:07)
[2018-02-16] MEDS: Metoprolol Succinate XL TAB* 25 MG PO SCH (08:07)
[2018-02-16] MEDS: Docusate CAP* 100 MG PO SCH ×2 (08:07→20:24)
[2018-02-16] MEDS: Enoxaparin(*) 40 MG/0.4 ML SYR SUBCUT SCH (10:52)
[2018-02-16] MEDS ORDERED: LEVODOPA PO SCH (14:00)
[2018-02-16] MEDS ORDERED: CARBIDOPA PO SCH (14:00)
--- NOTE | 2018-02-16 14:15 | PN ---
Progress Note - Progress Note Date of Service: 02/16/18 SOAP: Subjective: [Pt was seen laying in bed. Very slow to respond to questions. Denies any pain. Has been having trouble with movement today due to Parkinsons disease. ] Objective: [Gen: A&O slow to respond. NAD MSK, RLE: Dressing is c/d/i. Dressing changed today. Incision is c/d/i with no erythema or drainage. +df/pf, 2+ DP pulse, no tenderness to palpation of the calf. ] Vital Signs Temp 97.9 F 02/16/18 12:03 Pulse 74 02/16/18 11:36 Resp 18 02/16/18 11:36 BP 120/68 02/16/18 11:36 Pulse Ox 96 02/16/18 11:36 Intake & Output 02/15/18 02/16/18 02/16/18 18:59 06:59 18:59 Intake Total 240 360 850 Output Total 250 75 0 Balance -10 285 850 Intake: Oral 240 360 850 Output: Urine 0 Hdez 250 75 Other: Estimated Void Large Large Large Estimated Stool Amount Small # Voids 1 1 Assessment: [POD 2 right femoral neck fracture, cannulated screw fixation. ] Plan: [Continue with PT/OT WBAT Dressing changed today Continue with pain meds Hospitalists co-managing. ]
--- NOTE | 2018-02-16 14:27 | PN ---
Subjective Date of Service: 02/16/18 Interval History: Patient is rather rigid but more oriented today. Patient is impulsive and needs continued monitoring. Patient denies pain, CP, SOB, N/V, abdominal pain, dysuria , F/C, palpitations, or other pain. Patient seen later in the day and is much less responsive. Actively resists care. Refuses to take pills. Will wake up occasionally and answer appropriately. No focal deficits. Family concerned about acute deterioration. CT brain ordered. Family History: Unchanged from Admission Social History: Unchanged from Admission Past Medical History: Unchanged from Admission Objective Active Medications: Acetaminophen (Tylenol Tab*) 650 mg PO Q6H PRN PRN Reason: FEVER/PAIN Last Admin: 02/15/18 08:32 Dose: 650 mg Aspirin (Aspirin Ec Tab*) 81 mg PO DAILY [facility] Atorvastatin Calcium (Lipitor*) 10 mg PO DAILY [facility] Carbidopa/Levodopa (Carbidopa-Levo Er 25-100 Tab) 2 tab PO TID [facility] Docusate Sodium (Colace Cap*) 200 mg PO BID [facility] Last Admin: 02/16/18 08:07 Dose: 200 mg Donepezil HCl (Aricept Tab*) 5 mg PO DAILY [facility] Enoxaparin Sodium (Lovenox(*)) 40 mg SUBCUT Q24H [facility] Last Admin: 02/16/18 10:52 Dose: 40 mg Finasteride (Proscar Tab*) 5 mg PO DAILY [facility] Lisinopril (Prinivil Tab*) 2.5 mg PO QPM [facility] Last Admin: 02/15/18 17:55 Dose: 2.5 mg Melatonin (Melatonin) 3 mg PO BEDTIME PRN; Protocol PRN Reason: Sleep Metoprolol Succinate (Toprol Xl Tab*) 25 mg PO DAILY [facility] Last Admin: 02/16/18 08:07 Dose: 25 mg Mirabegron (Myrbetriq (Nf)) 50 mg PO DAILY [facility] Omeprazole (Prilosec Cap*) 20 mg PO DAILY@0600 [facility] Last Admin: 02/16/18 06:39 Dose: Not Given Ondansetron HCl (Zofran Odt Tab*) 4 mg PO Q6H PRN PRN Reason: n/v Polyethylene Glycol/Electrolytes (Miralax*) 17 gm PO DAILY PRN PRN Reason: CONSTIPATION Selegiline HCl (Eldepryl Tab*) 5 mg PO DAILY [facility] Last Admin: 02/16/18 08:07 Dose: 5 mg Senna (Senokot Tab*) 1 tab PO BEDTIME PRN PRN Reason: CONSTIPATION Tramadol HCl (Ultram*) 50 mg PO Q8H PRN PRN Reason: PAIN - SEVERE Last Admin: 02/16/18 08:10 Dose: 50 mg Vital Signs - 8 hr 02/16/18 02/16/18 02/16/18 07:46 08:07 08:10 Temperature 98.0 F Pulse Rate 73 Respiratory 20 16 15 Rate Blood Pressure 172/95 (mmHg) O2 Sat by Pulse 99 Oximetry 02/16/18 02/16/18 02/16/18 09:53 11:36 12:03 Temperature 97.9 F Pulse Rate 74 Respiratory 16 18 Rate Blood Pressure 120/68 (mmHg) O2 Sat by Pulse 96 Oximetry Oxygen Devices in Use Now: None Appearance: Patient is a 77yo tremulous male who appears stated age and is sitting in the bed in [facility]. Eyes: No Scleral Icterus, PERRLA Ears/Nose/Mouth/Throat: NL Teeth, Lips, Gums, Clear Oropharnyx, Mucous Membranes Moist Neck: NL Appearance and Movements; NL JVP, Trachea Midline Respiratory: Symmetrical Chest Expansion and Respiratory Effort, Clear to Auscultation Cardiovascular: NL Sounds; No Murmurs; No JVD, RRR, No Edema Abdominal: NL Sounds; No Tenderness; No Distention, No Hepatosplenomegaly, - - Distended and tender bladder. Lymphatic: No Cervical Adenopathy Extremities: No Edema, No Clubbing, Cyanosis Skin: No Nodules or Sclerosis, - - Right hip incision covered with CDI dressing. Neurological: Alert and Oriented x 3, - - Rigidity, tremor, CN II-XII intact. Mask-like facies. Result Diagrams: 02/16/18 06:20 02/16/18 06:20 Microbiology and Other Data: Microbiology 02/14/18 06:07 Urine Culture - Final Urine No Growth (<1,000 CFU/mL) Assess/Plan/Problems-Billing Assessment: Patient is a 77yo male with a PMH for Parkinson's disease, HTN, and BPH who presents after a mechanical fall with suffering a hip fracture and is inpatient for possible surgical fixation of hip. - Patient Problems (1) Altered mental state Current Visit: Yes Status: Acute Code(s): R41.82 - ALTERED MENTAL STATUS, UNSPECIFIED SNOMED Code(s): 119863518 Comment: Patient had a significant deterioration in mental status over the course of the day on 02/16. Actively resisting care without focal deficits. Occasionally responding appropriately. CT brain pending to rule out acute pathology. No metabolic abnormalities. Has not been getting doses of synthroid. If no improvement, consider neurological consultation. Likely hypoactive delirium from post-operative state, dementia, and hospitalization. (2) Nondisplaced fracture of right femur Current Visit: Yes Status: Acute Code(s): S72.91XA - UNSP FRACTURE OF RIGHT FEMUR, INIT FOR CLOS FX SNOMED Code(s): 60387672 Comment: Appreciate Orthopedic input. From Mechanical Fall due to wandering. Avoid Synthetic opoids intraoperatively due to MAOI. Continue DVT prophylaxis with Lovenox. H/H stable. Bowel meds and Pain control. PT/OT, will likely need rehab. Hopeful discharge to [facility] when available. (3) Parkinsons disease Current Visit: Yes Status: Acute Code(s): G20 - PARKINSON'S DISEASE SNOMED Code(s): 44313709 Comment: Has been worsening for several weeks with hallucinations. Was scheduled for MRI brain. Will do when back at [facility]. Continue Simemet and Seligiline at home dose. Was previously being under-dosed due to medication reconciliation error. MMA ordered by neurologist but results not available. Concern for cerebrovascular disease by [facility] [employer]. On aspirin, no focal deficits. MRI at this time would not change managment as patient would be a poor candidate for DAPT plus Lovenox. Lipid profile Excellent. (4) HTN (hypertension) Current Visit: Yes Status: Acute Code(s): I10 - ESSENTIAL (PRIMARY) HYPERTENSION SNOMED Code(s): 08674438 Comment: Normotensive. Continue metoprolol and hold lisinopril. (5) DVT prophylaxis Current Visit: Yes Status: Acute Code(s): JEM5047 - SNOMED Code(s): 982401740 Comment: Lovenox (6) Full code status Current Visit: Yes Status: Acute Code(s): Z78.9 - OTHER SPECIFIED HEALTH STATUS SNOMED Code(s): 594198973 Status and Disposition: Inpatient. Will need rehab.
[2018-02-16 15:21] LABS: Urine Appearance Clear; Urine Blood 3+ (Negative); Urine Color Yellow; Urine Ketones Negative (Negative); Urine Protein Negative (Negative); Urine Red Blood Cell 3+(>10/hpf) (Absent); Urine Specific Gravity 1.008 (1.010-1.030); Urine Urobilinogen Negative (Negative); Urine White Blood Cell 2+(11-20/hpf) (Absent)
[2018-02-16] MEDS ORDERED: Carbidopa/Levodop CR 50/200(*) TAB.CR PO SCH (15:30)
[2018-02-16] MEDS: Lisinopril TAB* 5 MG PO SCH (17:48)
--- NOTE | 2018-02-16 18:36 | RAD ---
EXAM: CT Head Without Intravenous Contrast CLINICAL HISTORY: 77 years old, male; Signs and symptoms; Altered mental status/memory loss TECHNIQUE: Axial computed tomography images of the head/brain without intravenous contrast. All CT scans at this facility use at least one of these dose optimization techniques: automated exposure control; mA and/or kV adjustment per patient size (includes targeted exams where dose is matched to clinical indication); or iterative reconstruction. COMPARISON: BRAIN WO MRI BRAIN W/O 12/19/2012 8:52 AM FINDINGS: Limitations: Examination is limited by motion artifact. Brain: Nonspecific hypodensities of the periventricular and deep subcortical white matter, most likely secondary to chronic small vessel ischemic change. No intracranial hemorrhage or extra-axial fluid collection. No evidence of mass effect or midline shift. Bhardwaj-white matter differentiation is normal. Ventricles: Prominence of the ventricles and sulci, most likely attributed to parenchymal volume loss. Bones/joints: Unremarkable. No acute fracture. Soft tissues: Unremarkable. Sinuses: Unremarkable as visualized. No acute sinusitis. Mastoid air cells: Unremarkable as visualized. No mastoid effusion. IMPRESSION: No acute intracranial pathology.
[2018-02-16] MEDS: Carbidopa/Levodop 25/100 MG TAB(*) PO SCH (20:24)
[2018-02-17] MEDS: Omeprazole CAP* 20 MG PO SCH (05:42)
[2018-02-17 06:13] LABS: ABS Basophils 0.1 10^3/ul (0-0.2); ABS Eosinophils 0.3 10^3/ul (0-0.6); ABS Lymphocytes 1.9 10^3/ul (1.0-4.8); ABS Monocytes 1.4 10^3/ul (0-0.8); ABS Neutrophils 7.6 10^3/ul (1.5-7.7); ABS Nucleated RBC 0 10^3/ul; Eosinophil % 2.2 % (0-6); Hematocrit 39 % (42-52); Hemoglobin 13.2 g/dl (14.0-18.0); Lymphocyte % 17.1 % (25-47); Mean Corpuscular HGB Conc 34 g/dl (31-36); Mean Corpuscular Hemoglobin 30 pg (27-31); Mean Corpuscular Volume 89 fL (80-94); Mean Platelet Volume 7.5 um3 (7.4-10.4); Nucleated Red Blood Cells % 0; Platelet Count 289 10^3/ul (150-450); Red Blood Count 4.42 10^6/ul (4.00-5.40); Red Cell Distribution Width 13 % (10.5-15); White Blood Count 11.2 10^3/ul (3.5-10.8)
[2018-02-17 06:34] LABS: EGFR Non-African American 68.1 (>60)
--- NOTE | 2018-02-17 08:05 | PN ---
Progress Note - Progress Note Date of Service: 02/17/18 SOAP: Subjective: [Pt lying in bed - difficult to arouse. ] Objective: [Pt lying in bed - opened eyes woth voice command but not responding to questions asked. R hip dressing C/D/I. Calves supple - no apparent discomfort with palpation. 2+ DP pulse. Vital Signs: Temp Pulse Resp BP Pulse Ox 98.8 F 68 18 154/79 99 02/17/18 04:13 02/17/18 04:13 02/17/18 04:13 02/17/18 04:13 02/17/18 04:13 Laboratory Results - last 24 hr 02/16/18 02/17/18 02/17/18 14:30 06:01 06:01 WBC 11.2 H RBC 4.42 Hgb 13.2 L Hct 39 L MCV 89 MCH 30 MCHC 34 RDW 13 Plt Count 289 MPV 7.5 Neut % (Auto) 67.4 Lymph % (Auto) 17.1 L [place] % (Auto) 12.3 H Eos % (Auto) 2.2 Baso % (Auto) 1.0 Absolute Neuts (auto) 7.6 Absolute Lymphs (auto) 1.9 Absolute Monos (auto) 1.4 H Absolute Eos (auto) 0.3 Absolute Basos (auto) 0.1 Absolute Nucleated RBC 0 Nucleated RBC % 0 Sodium 144 Potassium 4.9 Chloride 107 Carbon Dioxide 30 Anion Gap 7 BUN 23 Creatinine 1.05 Est GFR ( Amer) 82.4 Est GFR (Non-Af Amer) 68.1 BUN/Creatinine Ratio 21.9 H Glucose 99 Calcium 9.8 Magnesium 2.1 Ammonia Urine Color Yellow Urine Appearance Clear Urine pH 6.0 Ur Specific [place] 1.008 L Urine Protein Negative Urine Ketones Negative Urine Blood 3+ A Urine Nitrate Negative Urine Bilirubin Negative Urine Urobilinogen Negative Ur Leukocyte Esterase Negative Urine WBC (Auto) 2+(11-20/hpf) A Urine RBC (Auto) 3+(>10/hpf) A Urine Bacteria Absent Urine Yeast Present A Urine Glucose Negative 02/17/18 06:01 WBC RBC Hgb Hct MCV MCH MCHC RDW Plt Count MPV Neut % (Auto) Lymph % (Auto) [place] % (Auto) Eos % (Auto) Baso % (Auto) Absolute Neuts (auto) Absolute Lymphs (auto) Absolute Monos (auto) Absolute Eos (auto) Absolute Basos (auto) Absolute Nucleated RBC Nucleated RBC % Sodium Potassium Chloride Carbon Dioxide Anion Gap BUN Creatinine Est GFR ( Amer) Est GFR (Non-Af Amer) BUN/Creatinine Ratio Glucose Calcium Magnesium Ammonia 30 Urine Color Urine Appearance Urine pH Ur Specific [place] Urine Protein Urine Ketones Urine Blood Urine Nitrate Urine Bilirubin Urine Urobilinogen Ur Leukocyte Esterase Urine WBC (Auto) Urine RBC (Auto) Urine Bacteria Urine Yeast Urine Glucose ] Assessment: []77 yo male s/p ORIF R femoral neck fx POD # 3 Parkinson's disease Plan: [Con't PT/OT WBAT Pain management Hospitalists co-managing]
[2018-02-17] MEDS: Docusate CAP* 100 MG PO SCH ×2 (08:20→20:17)
[2018-02-17] MEDS: Mirabegron (NF) 50 MG TAB PO SCH (08:26)
[2018-02-17] MEDS: Selegiline TAB* 5 MG PO SCH (09:25)
[2018-02-17] MEDS: Carbidopa/Levodop 25/100 MG TAB(*) PO SCH ×3 (09:25→20:15)
[2018-02-17] MEDS: Atorvastatin* 10 MG TAB PO SCH (09:25)
[2018-02-17] MEDS: Metoprolol Succinate XL TAB* 25 MG PO SCH (09:25)
[2018-02-17] MEDS: Donepezil TAB* 5 MG PO SCH (09:25)
[2018-02-17] MEDS: Finasteride TAB* 5 MG PO SCH (09:26)
[2018-02-17] MEDS: Aspirin EC TAB* 81 MG TAB.EC PO SCH (09:26)
[2018-02-17] MEDS: Enoxaparin(*) 40 MG/0.4 ML SYR SUBCUT SCH (11:14)
--- NOTE | 2018-02-17 15:52 | PN ---
Subjective Date of Service: 02/17/18 Interval History: Patient not answering questions. gives history, he is not communicating with her either. He opened eyes a few times. She is concerned that he is almost completely unresponsive and we do not know why. Not eating much at all. Family History: Unchanged from Admission Social History: Unchanged from Admission Past Medical History: Unchanged from Admission Objective Active Medications: Acetaminophen (Tylenol Tab*) 650 mg PO Q6H PRN PRN Reason: FEVER/PAIN Last Admin: 02/15/18 08:32 Dose: 650 mg Aspirin (Aspirin Ec Tab*) 81 mg PO DAILY [facility] Last Admin: 02/17/18 09:26 Dose: 81 mg Atorvastatin Calcium (Lipitor*) 10 mg PO DAILY [facility] Last Admin: 02/17/18 09:25 Dose: 10 mg Carbidopa/Levodopa (Sinemet 25/100 Tab(*)) 2 tab PO TID [facility] Last Admin: 02/17/18 13:56 Dose: 2 tab Docusate Sodium (Colace Cap*) 200 mg PO BID [facility] Last Admin: 02/17/18 08:20 Dose: Not Given Donepezil HCl (Aricept Tab*) 5 mg PO DAILY [facility] Last Admin: 02/17/18 09:25 Dose: 5 mg Enoxaparin Sodium (Lovenox(*)) 40 mg SUBCUT Q24H [facility] Last Admin: 02/17/18 11:14 Dose: 40 mg Finasteride (Proscar Tab*) 5 mg PO DAILY [facility] Last Admin: 02/17/18 09:26 Dose: 5 mg Lisinopril (Prinivil Tab*) 2.5 mg PO QPM [facility] Last Admin: 02/16/18 17:48 Dose: 2.5 mg Melatonin (Melatonin) 3 mg PO BEDTIME PRN; Protocol PRN Reason: Sleep Metoprolol Succinate (Toprol Xl Tab*) 25 mg PO DAILY [facility] Last Admin: 02/17/18 09:25 Dose: 25 mg Mirabegron (Myrbetriq (Nf)) 50 mg PO DAILY [facility] Last Admin: 02/17/18 08:26 Dose: Not Given Omeprazole (Prilosec Cap*) 20 mg PO DAILY@0600 [facility] Last Admin: 02/17/18 05:42 Dose: 20 mg Ondansetron HCl (Zofran Odt Tab*) 4 mg PO Q6H PRN PRN Reason: n/v Polyethylene Glycol/Electrolytes (Miralax*) 17 gm PO DAILY PRN PRN Reason: CONSTIPATION Selegiline HCl (Eldepryl Tab*) 5 mg PO DAILY [facility] Last Admin: 02/17/18 09:25 Dose: 5 mg Senna (Senokot Tab*) 1 tab PO BEDTIME PRN PRN Reason: CONSTIPATION Tramadol HCl (Ultram*) 50 mg PO Q8H PRN PRN Reason: PAIN - SEVERE Last Admin: 02/16/18 08:10 Dose: 50 mg Vital Signs - 8 hr 02/17/18 02/17/18 08:00 11:40 Temperature 36.6 C Pulse Rate 75 Respiratory 16 18 Rate Blood Pressure 120/66 (mmHg) O2 Sat by Pulse 99 Oximetry Oxygen Devices in Use Now: None Appearance: no acute distress , appears asleep Ears/Nose/Mouth/Throat: Clear Oropharnyx Neck: No Thyroid Enlargement, Masses Respiratory: Clear to Auscultation, Clear to Percussion Cardiovascular: NL Sounds; No Murmurs; No JVD Abdominal: NL Sounds; No Tenderness; No Distention Extremities: - - RT hip bandage C/D/I Neurological: - - said "yes" when I asked to wake up, no other response, squeezes eyes shut, waxy flexibility noted, no tremor Lines/Tubes/Other Access: Clean, Dry and Intact Peripheral IV Nutrition: Taking PO's Result Diagrams: 02/17/18 06:01 02/17/18 06:01 Microbiology and Other Data: Microbiology 02/14/18 06:07 Urine Culture - Final Urine No Growth (<1,000 CFU/mL) Assess/Plan/Problems-Billing Assessment: Patient is a 77yo male with a PMH for Parkinson's disease, HTN, and BPH who presents after a mechanical fall with suffering a hip fracture and s/p screw fixation of RT hip. - Patient Problems (1) Altered mental state Current Visit: Yes Status: Acute Priority: High Code(s): R41.82 - ALTERED MENTAL STATUS, UNSPECIFIED SNOMED Code(s): 192697383 Comment: - patient may have hypoactive delirium, vs catatonia - had underdosing of carbidopa/lovodopa but this has been corrected - spoke with Dr. Cowdery who will perform neurological consultation. - suspect underlying Lewy body dementia (2) HTN (hypertension) Current Visit: Yes Status: Acute Priority: Medium Code(s): I10 - ESSENTIAL (PRIMARY) HYPERTENSION SNOMED Code(s): 36318899 Comment: - Normotensive. - Continue metoprolol and hold lisinopril. (3) Nondisplaced fracture of right femur Current Visit: Yes Status: Acute Priority: Medium Code(s): S72.91XA - UNSP FRACTURE OF RIGHT FEMUR, INIT FOR CLOS FX SNOMED Code(s): 49033326 Comment: - post-op day 3 - Bowel meds and Pain control. - PT/OT, will likely need rehab. - Hopeful discharge to [facility] when available. (4) DVT prophylaxis Current Visit: Yes Status: Acute Code(s): EOA2986 - SNOMED Code(s): 731658221 Comment: -Lovenox Status and Disposition: Inpatient. Will need rehab.
[2018-02-17] MEDS: Lisinopril TAB* 5 MG PO SCH (17:18)
[2018-02-18] MEDS: Omeprazole CAP* 20 MG PO SCH (05:45)
[2018-02-18] MEDS ORDERED: NS 0.9% 250 ML* 250 ML IV SCH (06:15)
--- NOTE | 2018-02-18 08:44 | PN ---
Progress Note - Progress Note Date of Service: 02/18/18 SOAP: Subjective: [Pt reports "zero" pain R hip. Otherwise his speech is difficult to understand. ] Objective: [Alert -- seated on edge of bed with psychiatric therapist at bedside. Pt tries to answer questions but not making sense. R hip dressing C/D/I Calves soft, NT Distal gross motor, NV function intact. Vital Signs: Temp Pulse Resp BP Pulse Ox 97.9 F 69 16 165/82 97 02/18/18 03:42 02/18/18 03:42 02/18/18 03:42 02/18/18 03:42 02/18/18 03:42 ] Assessment: [s/p R hip ORIF POD #4 Parkinson's] Plan: [Con't PT/OT WBAT Medicine following]
[2018-02-18] MEDS: Finasteride TAB* 5 MG PO SCH (09:07)
[2018-02-18] MEDS: Docusate CAP* 100 MG PO SCH ×2 (09:07→21:11)
[2018-02-18] MEDS: Donepezil TAB* 5 MG PO SCH (09:07)
[2018-02-18] MEDS: Metoprolol Succinate XL TAB* 25 MG PO SCH (09:07)
[2018-02-18] MEDS: Atorvastatin* 10 MG TAB PO SCH (09:07)
[2018-02-18] MEDS: Aspirin EC TAB* 81 MG TAB.EC PO SCH (09:07)
[2018-02-18] MEDS: Carbidopa/Levodop 25/100 MG TAB(*) PO SCH ×3 (09:07→21:12)
[2018-02-18] MEDS: Selegiline TAB* 5 MG PO SCH (09:07)
[2018-02-18] MEDS: Mirabegron (NF) 50 MG TAB PO SCH (09:12)
[2018-02-18] MEDS: Enoxaparin(*) 40 MG/0.4 ML SYR SUBCUT SCH (11:10)
--- NOTE | 2018-02-18 15:29 | PN ---
Subjective Date of Service: 02/18/18 Interval History: Patient states pain is minimal RT hip. Feels much better overall today. Has been able to eat. Willing to do physical therapy. Family History: Unchanged from Admission Social History: Unchanged from Admission Past Medical History: Unchanged from Admission Objective Active Medications: Acetaminophen (Tylenol Tab*) 650 mg PO Q6H PRN PRN Reason: FEVER/PAIN Last Admin: 02/15/18 08:32 Dose: 650 mg Aspirin (Aspirin Ec Tab*) 81 mg PO DAILY [facility] Last Admin: 02/18/18 09:07 Dose: 81 mg Atorvastatin Calcium (Lipitor*) 10 mg PO DAILY [facility] Last Admin: 02/18/18 09:07 Dose: 10 mg Carbidopa/Levodopa (Sinemet 25/100 Tab(*)) 2 tab PO TID [facility] Last Admin: 02/18/18 14:38 Dose: 2 tab Docusate Sodium (Colace Cap*) 200 mg PO BID [facility] Last Admin: 02/18/18 09:07 Dose: 200 mg Donepezil HCl (Aricept Tab*) 5 mg PO DAILY [facility] Last Admin: 02/18/18 09:07 Dose: 5 mg Enoxaparin Sodium (Lovenox(*)) 40 mg SUBCUT Q24H [facility] Last Admin: 02/18/18 11:10 Dose: 40 mg Finasteride (Proscar Tab*) 5 mg PO DAILY [facility] Last Admin: 02/18/18 09:07 Dose: 5 mg Lisinopril (Prinivil Tab*) 2.5 mg PO QPM [facility] Last Admin: 02/17/18 17:18 Dose: 2.5 mg Melatonin (Melatonin) 3 mg PO BEDTIME PRN; Protocol PRN Reason: Sleep Metoprolol Succinate (Toprol Xl Tab*) 25 mg PO DAILY [facility] Last Admin: 02/18/18 09:07 Dose: 25 mg Mirabegron (Myrbetriq (Nf)) 50 mg PO DAILY [facility] Last Admin: 02/18/18 09:12 Dose: Not Given Omeprazole (Prilosec Cap*) 20 mg PO DAILY@0600 [facility] Last Admin: 02/18/18 05:45 Dose: 20 mg Ondansetron HCl (Zofran Odt Tab*) 4 mg PO Q6H PRN PRN Reason: n/v Polyethylene Glycol/Electrolytes (Miralax*) 17 gm PO DAILY PRN PRN Reason: CONSTIPATION Senna (Senokot Tab*) 1 tab PO BEDTIME PRN PRN Reason: CONSTIPATION Tramadol HCl (Ultram*) 50 mg PO Q8H PRN PRN Reason: PAIN - SEVERE Last Admin: 02/16/18 08:10 Dose: 50 mg Vital Signs - 8 hr 02/18/18 02/18/18 02/18/18 08:00 08:45 11:29 Temperature 36.8 C 37.1 C Pulse Rate 104 66 Respiratory 18 16 16 Rate Blood Pressure 138/72 105/51 (mmHg) O2 Sat by Pulse 99 95 Oximetry Oxygen Devices in Use Now: None Appearance: alert, no distress Ears/Nose/Mouth/Throat: Clear Oropharnyx Neck: No Thyroid Enlargement, Masses Respiratory: Clear to Auscultation, Clear to Percussion Cardiovascular: NL Sounds; No Murmurs; No JVD, RRR Abdominal: NL Sounds; No Tenderness; No Distention Neurological: - - alert, cooperative Lines/Tubes/Other Access: Clean, Dry and Intact Peripheral IV Nutrition: Taking PO's Result Diagrams: 02/17/18 06:01 02/17/18 06:01 Assess/Plan/Problems-Billing Assessment: Patient is a 77yo male with a PMH for Parkinson's disease, HTN, and BPH who presents after a mechanical fall with suffering a hip fracture and s/p screw fixation of RT hip. - Patient Problems (1) Altered mental state Current Visit: Yes Status: Acute Priority: High Code(s): R41.82 - ALTERED MENTAL STATUS, UNSPECIFIED SNOMED Code(s): 444654128 Comment: - patient improving from hypoactive delirium - had underdosing of carbidopa/lovodopa but this has been corrected - appreciate Dr. Choi's consultation. Selegiline has been stopped, may cause hallucinations. - suspect underlying Lewy body dementia (2) HTN (hypertension) Current Visit: Yes Status: Acute Priority: Medium Code(s): I10 - ESSENTIAL (PRIMARY) HYPERTENSION SNOMED Code(s): 65938688 Comment: - Normotensive. - Continue metoprolol and hold lisinopril. (3) Nondisplaced fracture of right femur Current Visit: Yes Status: Acute Priority: Medium Code(s): S72.91XA - UNSP FRACTURE OF RIGHT FEMUR, INIT FOR CLOS FX SNOMED Code(s): 25149880 Comment: - post-op day 4 - Bowel meds and Pain control. - PT/OT, will likely need rehab. - Should be ready for discharge to [facility] in 1-2 days. (4) DVT prophylaxis Current Visit: Yes Status: Acute Code(s): QLH0885 - SNOMED Code(s): 985034596 Comment: -Lovenox Status and Disposition: Inpatient. Will need SNF-rehab.
[2018-02-18] MEDS: Lisinopril TAB* 5 MG PO SCH (17:13)
[2018-02-18] MEDS: Acetaminophen TAB* 325 MG PO PRN (17:14)
--- NOTE | 2018-02-18 17:37 | CONS ---
CC: Dr. Celio Jessica; Dr. Andrea Weiner. CONSULTATION REPORT: DATE OF CONSULT/DATE OF SERVICE: 02/18/18. REQUESTING PHYSICIAN: Dr. Pepito Valdez. REASON FOR CONSULT: Change in mental status. HISTORY OF PRESENT ILLNESS: Yared Cronin is a 77-year-old gentleman with a history of parkinsonian symptoms who was admitted to hospital on 02/14/18. His indicates that he was in the living room and tripped over his own foot and fell. This resulted in a right femoral neck fracture. Since she last saw him in the living room, he has been confused. He was seen by orthopedics and he had surgery of his right hip on 02/14/18 with no complications per our OR report. Notes indicate he has been persistently confused. He has been slow to answer. Urinary retention was noted postop to 500 mL. He had a Hdez placed on the . He had been seen by a urologist as an outpatient and had been given mirabegron. Other notes indicate he was rigid but more oriented, but then later in the day less responsive. Dr. Valdez indicated he was almost completely unresponsive during his rounding on the , questioned catatonia, and requested neurology consult. In workup of his symptoms, he has had a CT of the brain, which I reviewed directly from 02/16/18, which showed no new pathology. It had some movement artifact. He had previously had an MRI of the brain in the past, which had some atrophy and minimal small vessel ischemic disease. His CBC had shown persistent elevated white counts since admission at 11.2 with no left shift. He has slight anemia and a normal platelet count. His metabolic panel has not shown electrolyte abnormality to contribute to the findings. His BUN/ creatinine ratio is slightly elevated yesterday. He has had ammonia which is in within normal limits. His C-reactive protein on the was elevated at 26.77. His liver function tests on the were within normal limits. He had had B12 and methylmalonic acid level, which were 384 and 0.15 respectively. His urinalysis did not reveal infection and went on for a culture, which was negative. This occurs in the setting of known history of parkinsonian features. He originally saw Dr. Weiner in November 2012 where he noted early signs of Parkinson disease with some atypical features with no tremor and a flexed right arm. MRI of the brain was performed at that time which showed atrophy and small vessel ischemic disease. He was started on selegiline in December 2014. By March 2016, Dr. 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 Carbidopa/levodopa was started in the fall of 2015. At first showed no improvement. Dose was increased to 1.5 tablets tid.. Exam did show parkinsonian features. His mini mental status at that time was reported to be 28/30. He was started on donepezil. By June 2017, he was noted to yell and thrash in his sleep with visual hallucinations of molecular structures noted by January,. Question was raised of Lewy body dementia as well as REM behavior disorder. His donepezil was increased. In his most recent visit on , his carbidopa/levodopa was switched to extended release 50/200 one t.i.d. His indicates perhaps there could have been slight increase in hallucinations since the increase. His real decline has been noticed since he has been admitted to hospital. Mr. Cronin could not contribute to history. When I told him he had surgery on his hip, he would lift his arm and look at his hand and talk about issues with his hand on the left side. PAST MEDICAL HISTORY: Includes benign prostatic hypertrophy, hyperlipidemia, hypertension, parkinsonian symptoms with question of Lewy body dementia and REM behavior disorder. PAST SURGICAL HISTORY: Includes tonsillectomy and vasectomy. CURRENT MEDICATIONS: Include: 1. Acetaminophen 650 mg p.o. q.6 hours p.r.n. for pain. 2. Aspirin 81 mg p.o. daily. 3. Lipitor 10 mg p.o. daily. 4. Carbidopa/levodopa 25/100 two tablets p.o. t.i.d. 5. Colace 200 mg p.o. b.i.d. 6. Donepezil 5 mg p.o. daily. 7. Lovenox 40 mg subcu q.24 hours. 8. Proscar 5 mg p.o. daily. 9. Prinivil 2.5 mg p.o. q.p.m. 10. Melatonin 3 mg p.o. q.p.m. 11. Toprol-XL 25 mg p.o. daily. 12. Myrbetriq 50 mg p.o. daily, which has not been given. 13. Prilosec 20 mg p.o. daily. 14 Ondansetron 4 mg p.o. q.6 hours p.r.n., nausea and vomiting. 15. MiraLAX 17 g p.o. daily p.r.n. constipation. 16. Selegiline 5 mg p.o. daily. 17. Senna 1 tablet p.o. q.p.m. p.r.n. constipation. 18. Ultram 50 mg p.o. q.8 hours p.r.n. severe pain. Last dose 02/16/18. ALLERGIES: He has no known drug allergies. SOCIAL HISTORY: Yared Cronin is , lives at [facility] with his . 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 Patient could not give any further history regarding social habits. No alcohol, tobacco intake was indicated in the chart. FAMILY HISTORY: Could not be obtained from patient in his current clinical status. REVIEW OF SYSTEMS: Patient could not participate. Please see above details from chart. Information incorporated from interview with and past medical history. PHYSICAL EXAMINATION: His most recent temperature was 98.2 degrees measured temporally, his pulse was 104 and regular, respiratory rate was 16, sat was 99% , blood pressure was 138/72. His previous pulse was fine and appeared to be lower during my examination. He had regular cardiac rhythms. Lungs clear to auscultation. I could appreciate a carotid bruit. He was awake. He was eating breakfast. He did not know where he was, did not know why he came in. He did not know the date, the President, the month. He was able to interact with simple commands; however, would make mistakes such as lifting his left arm when I was asking him to lift his left leg. He had full extraocular movements with saccadic intrusions. His pupils are equal and responsive to light. I could not visualize his fundi. His facial expression was symmetric but diminished. His facial sensation appeared to be symmetric. He denied any asymmetries to hearing finger rub. His palate was upgoing, tongue was midline and he gave good movements of sternocleidomastoid and trapezius bilaterally. He could count fingers in all christensen but had some confusion doing this task at first. He did the best with his right eye. His left eye, there was some question of some difficulty in the left lower lateral field. He had some paratonia. Otherwise, his tone was okay in his upper extremities. He gave good resistance in his arms and his legs it was harder for him to coordinate strength but he did give some good distal strength bilaterally and good knee extension bilaterally, and was able to lift his left leg proximally although it took many repeated efforts as he kept lifting his arm instead of his leg. DIAGNOSTIC STUDIES/LAB DATA: Includes patient's chart, which has been reviewed both inpatient and outpatient. Went through the Progress notes by the hospitalist as well as consultation by Orthopedics and hospitalists. A CT of the brain was reviewed directly and again no clear cause for decline was noted. As noted above, laboratory tests were reviewed and there were no clear cause of decline on his CBC, complete metabolic panel and subsequent basic metabolic panel, urinalysis. He had had a previous B12 and methylmalonic acid level which were normal and a negative ammonia level. His C-reactive protein was elevated. However, this is in the setting of hip fracture. IMPRESSION: A 77-year-old gentleman with a history of Parkinsonism with a progressive decline and symptoms raising question of Lewy body dementia and REM behavior disorder, now admitted with a fall and right hip fracture. He has had surgery and has been noted to have variation in attentiveness and being awake as well as persistent confusion and hallucinations. There may have been some increasing hallucination from prior to admission, but now he is markedly worse. There are no new findings on CT or laboratory work to explain his decline. His decline may be multifactorial. Hospitalization, surgery and pain medications may also contribute to decline in an elderly patient, let alone one with parkinsonism, possible Lewy body dementia and REM behavior disorder. Medication may be contributing. Selegiline may interact with his pain medications and may further increase hallucinations. He has be on this medication since 2015. He is on 5 mg at this time. We will plan to hold Selegiline tomorrow and observe. He has also recently had increase in carbidopa /levodopa and when first admitted was on a lower dose. He is now is on 50/200 t.i.d. Further adjustments of this dose may want to be considered. I will defer this to Dr. Weiner who is his primary neurologist and will be conveyor loader tomorrow. I will check his TSH to complete his laboratory workup. TIME SPENT: Two hours were spent in review of both in and outpatient chart, performing consultation, and in discussion with family. All questions were answered. [id number]/[facility] #: [id number] [place]
[2018-02-19] MEDS: Omeprazole CAP* 20 MG PO SCH (05:56)
[2018-02-19] MEDS: Carbidopa/Levodop 25/100 MG TAB(*) PO SCH ×4 (09:12→23:02)
[2018-02-19] MEDS: Metoprolol Succinate XL TAB* 25 MG PO SCH (09:14)
[2018-02-19] MEDS: Donepezil TAB* 5 MG PO SCH (09:15)
[2018-02-19] MEDS: Finasteride TAB* 5 MG PO SCH (09:16)
[2018-02-19] MEDS: Aspirin EC TAB* 81 MG TAB.EC PO SCH (09:16)
[2018-02-19] MEDS: Atorvastatin* 10 MG TAB PO SCH (09:17)
[2018-02-19] MEDS: Docusate CAP* 100 MG PO SCH ×3 (09:17→21:03)
[2018-02-19] MEDS: Mirabegron (NF) 50 MG TAB PO SCH (09:18)
[2018-02-19] MEDS: Enoxaparin(*) 40 MG/0.4 ML SYR SUBCUT SCH (11:37)
[2018-02-19] MEDS: Tamsulosin CAP* 0.4 MG PO SCH (12:48)
--- NOTE | 2018-02-19 14:17 | PN ---
Progress Note - Progress Note Date of Service: 02/19/18 SOAP: Subjective: Pt reports "zero" pain R hip. He was difficult to arouse, speech is low and slow, difficult to understand. ] Objective: [Seated in chair. Slow to respond to questions. R hip dressing C/D/I Calves soft, NT. He is able to df/pf after asking many times. Distal gross motor, NVI, 2+ PT pulse. Vital Signs Temp 98.2 F 02/19/18 11:06 Pulse 107 02/19/18 11:27 Resp 18 02/19/18 11:27 BP 97/55 02/19/18 11:27 Pulse Ox 99 02/19/18 11:27 Intake & Output 02/18/18 02/19/18 02/19/18 18:59 06:59 18:59 Intake Total 1090 1200 110 Output Total 250 550 Balance 840 650 110 Intake: IV Fluids 250 NS (0.9%) 250 Oral 840 1200 110 Output: Hdez 250 550 Other: # Bowel Movements 1 Estimated Stool Amount Medium Small Assessment: [s/p R hip ORIF POD #5 Parkinson's] Plan: [Con't PT/OT WBAT Medicine following Awaiting bed placement at this time. Possible DC today if a bed should become available]
--- NOTE | 2018-02-19 16:23 | PN ---
Subjective Date of Service: 02/19/18 Interval History: RN reported an episode of rigidity and unresponsiveness when Mr. Cronin stood up this morning. He is unable to tell me anything about the morning, but says he feels "fine" now. He denies pain. Family History: Unchanged from Admission Social History: Unchanged from Admission Past Medical History: Unchanged from Admission Objective Active Medications: Acetaminophen (Tylenol Tab*) 650 mg PO Q6H PRN PRN Reason: FEVER/PAIN Last Admin: 02/18/18 17:14 Dose: 650 mg Aspirin (Aspirin Ec Tab*) 81 mg PO DAILY [facility] Last Admin: 02/19/18 09:16 Dose: 81 mg Atorvastatin Calcium (Lipitor*) 10 mg PO DAILY [facility] Last Admin: 02/19/18 09:17 Dose: 10 mg Carbidopa/Levodopa (Sinemet 25/100 Tab(*)) 2 tab PO TID [facility] Last Admin: 02/19/18 14:45 Dose: 2 tab Docusate Sodium (Colace Cap*) 200 mg PO BID [facility] Last Admin: 02/19/18 09:17 Dose: Not Given Donepezil HCl (Aricept Tab*) 5 mg PO DAILY [facility] Last Admin: 02/19/18 09:15 Dose: 5 mg Enoxaparin Sodium (Lovenox(*)) 40 mg SUBCUT Q24H [facility] Last Admin: 02/19/18 11:37 Dose: 40 mg Finasteride (Proscar Tab*) 5 mg PO DAILY [facility] Last Admin: 02/19/18 09:16 Dose: 5 mg Lisinopril (Prinivil Tab*) 2.5 mg PO QPM [facility] Last Admin: 02/18/18 17:13 Dose: 2.5 mg Melatonin (Melatonin) 3 mg PO BEDTIME PRN; Protocol PRN Reason: Sleep Metoprolol Succinate (Toprol Xl Tab*) 25 mg PO DAILY [facility] Last Admin: 02/19/18 09:14 Dose: 25 mg Mirabegron (Myrbetriq (Nf)) 50 mg PO DAILY [facility] Last Admin: 02/19/18 09:18 Dose: Not Given Omeprazole (Prilosec Cap*) 20 mg PO DAILY@0600 [facility] Last Admin: 02/19/18 05:56 Dose: 20 mg Ondansetron HCl (Zofran Odt Tab*) 4 mg PO Q6H PRN PRN Reason: n/v Polyethylene Glycol/Electrolytes (Miralax*) 17 gm PO DAILY PRN PRN Reason: CONSTIPATION Senna (Senokot Tab*) 1 tab PO BEDTIME PRN PRN Reason: CONSTIPATION Tamsulosin HCl (Flomax Cap*) 0.4 mg PO DAILY [facility] Last Admin: 02/19/18 12:48 Dose: Not Given Tramadol HCl (Ultram*) 50 mg PO Q8H PRN PRN Reason: PAIN - SEVERE Last Admin: 02/16/18 08:10 Dose: 50 mg Vital Signs - 8 hr 02/19/18 02/19/18 02/19/18 11:06 11:27 15:16 Temperature 98.2 F 97.5 F Pulse Rate 122 107 73 Respiratory 20 18 16 Rate Blood Pressure 97/67 97/55 107/55 (mmHg) O2 Sat by Pulse 99 99 99 Oximetry Oxygen Devices in Use Now: None Appearance: alert, resting in the recliner, pill rolling tremor, mumbles frequently Eyes: No Scleral Icterus Ears/Nose/Mouth/Throat: NL Teeth, Lips, Gums Neck: NL Appearance and Movements; NL JVP Respiratory: Symmetrical Chest Expansion and Respiratory Effort, Clear to Auscultation Cardiovascular: NL Sounds; No Murmurs; No JVD, RRR Abdominal: NL Sounds; No Tenderness; No Distention Lymphatic: No Cervical Adenopathy Extremities: No Edema Skin: No Rash or Ulcers Neurological: - - oriented to person only. no rigidity on my exam. Result Diagrams: 02/17/18 06:01 02/17/18 06:01 Microbiology and Other Data: Microbiology 02/14/18 06:07 Urine Culture - Final Urine No Growth (<1,000 CFU/mL) Assess/Plan/Problems-Billing Assessment: Patient is a 77yo male with a PMH for Parkinson's disease, HTN, and BPH who presents after a mechanical fall with suffering a hip fracture and s/p screw fixation of RT hip. - Patient Problems (1) Nondisplaced fracture of right femur Current Visit: Yes Status: Acute Priority: Medium Code(s): S72.91XA - UNSP FRACTURE OF RIGHT FEMUR, INIT FOR CLOS FX SNOMED Code(s): 56883597 Comment: POD #5 Bowel regimen Pain is controlled Plan for T-house tomorrow (2) Acute urinary retention Current Visit: Yes Status: Acute Code(s): R33.8 - OTHER RETENTION OF URINE SNOMED Code(s): 621104676 Comment: unfortunately failed voiding trial add flomax to finasteride plan for lobo x 2 weeks and urology follow up (3) Parkinsons disease Current Visit: Yes Status: Acute Code(s): G20 - PARKINSON'S DISEASE SNOMED Code(s): 74754663 Comment: follows closely with Dr. Weiner; no changes recommended likely exacerbated by stress of fall and hospitalization Status and Disposition: Inpatient. Will need SNF-rehab.
[2018-02-19] MEDS: Lisinopril TAB* 5 MG PO SCH (16:56)
--- NOTE | 2018-02-19 21:12 | CONS ---
NEUROLOGY FOLLOWUP NOTE: DATE OF FOLLOWUP: 02/19/18 HOSPITALIST: ANDREW Bradley LOCATION: He is an inpatient in room 337. CHIEF COMPLAINT: Parkinsonism and dementia, delirium. INTERVAL HISTORY: Since yesterday, Yared is doing much better according to Mrs. Cronin and his son who is present this afternoon. I reviewed prior notes and he was pretty much unresponsive postoperatively. He is doing much better today from our report and is the best that he has been this afternoon. He is able to answer questions and realized that he fell and broke his leg. He denies any leg pain currently. I have seen him in my office for a number of years for progressive parkinsonism and dementia and, in recent visits, I thought he might have Lewy body disease. MEDICATIONS: Reviewed and he is on: 1. Tramadol 50 mg p.o. q.8 hours as needed for severe pain. 2. Flomax 0.4 mg p.o. q. day. 3. Zofran 4 mg p.o. q.6 hours as needed for nausea. 4. Omeprazole 20 mg p.o. q. day. 5. Myrbetriq 50 mg p.o. q. day. 6. Metoprolol XL 25 mg p.o. q. day. 7. Lisinopril 2.5 mg p.o. q.p.m. 8. Proscar 5 mg p.o. q. day. 9. Lovenox 40 mg subcutaneous q.24 hours. 10. Donepezil 5 mg p.o. q. day. 11. Carbidopa/Levodopa 25/100 two tablets p.o. t.i.d. 12. Atorvastatin 10 mg p.o. q. day. 13. Aspirin 81 mg p.o. q. day. PHYSICAL EXAM: He is a thin, but well hydrated. Temperature is 98.6 temporally , blood pressure 130/50, heart rates in the 50s and 60s and regular. Neurologically, he is awake and alert. He has hypophonic speech, but is intelligible. He has grade III hypomimia unchanged from prior visits with him. He has diffuse cogwheel rigidity, a little worse in the left arm than the right. There is no tremor. Finger tapes are slow, but he is capable of completing them bilaterally and fairly symmetrically. He is able to dorsiflex his feet against gravity, but I did not test lower extremity proximal strength or try to walk him. He is oriented to person in the hospital. DIAGNOSTIC STUDIES/LAB DATA: Other laboratory data notable for a brain CT from 02/16/18 interpreted as showing nonspecific hypodensities in the periventricular region, most likely secondary to chronic small vessel ischemic change. Dr. Rosy Choi's consultation note from 02/18/18 is reviewed as well. Other laboratory data includes CBC from 02/17/18 with a white blood cell count of 11.2, hemoglobin stable at 13.2. Chemistries 02/17/18 unremarkable. TSH normal at 0.62. Urinalysis 02/16/18 notable for 3+ blood, 2+ white blood cells, 3+ red blood cells. Yeast is present. Urine culture from 02/14/18 and 02/16/18 are both no growth. IMPRESSION AND PLAN: Impression is that of postoperative delirium in a patient with parkinsonism and dementia. He seems to have improved considerably in the last 24 hours. I would avoid neuroleptic medications with his history of possible Lewy body disease. I would minimize opioid analgesics as well. I think getting him to rehab facility, where he will have a more stable environment, would minimize the risk of day-night disorientation. I would recommend continuing the carbidopa/levodopa at the current dose of 200 mg Levodopa 3 times per day during the daytime hours. I will see him in followup in my office after his hopefully uneventful recovery from his fracture and his rehabilitation stay. [id number]/[facility] #: [id number] [place]
[2018-02-20] MEDS: Acetaminophen TAB* 325 MG PO PRN ×2 (01:38→09:39)
[2018-02-20] MEDS: Omeprazole CAP* 20 MG PO SCH (06:11)
--- NOTE | 2018-02-20 08:08 | PN ---
Progress Note - Progress Note Date of Service: 02/20/18 SOAP: Subjective: Pt reports no pain R hip. He is a bit more awake today, able to communicate easier. He states that he is doing better. ] Objective: [Seated in bed. R hip dressing C/D/I, dressing changed today. Incision is c/d/i. No drainage or erythema. Calves soft, NT. He is able to df/pf after asking many times. Distal gross motor, NVI, 2+ PT pulse. Vital Signs Temp 98.1 F 02/20/18 03:43 Pulse 62 02/20/18 03:43 Resp 16 02/20/18 03:43 BP 136/57 02/20/18 03:43 Pulse Ox 100 02/20/18 03:43 Intake & Output 02/19/18 02/20/18 02/20/18 18:59 06:59 18:59 Intake Total 130 420 Output Total 380 Balance 130 40 Intake: Oral 130 420 Output: Hdez 380 Other: Estimated Stool Amount Small Assessment: [s/p R hip ORIF POD #6 Parkinson's] Plan: [Con't PT/OT WBAT Medicine following Dr. Weiner following Plan is D/C to [facility] [place] per medicine ]
[2018-02-20 08:26] VITALS: BP 106/93
[2018-02-20] MEDS: Metoprolol Succinate XL TAB* 25 MG PO SCH (09:29)
[2018-02-20] MEDS: Tamsulosin CAP* 0.4 MG PO SCH (09:30)
[2018-02-20] MEDS: Mirabegron (NF) 50 MG TAB PO SCH (09:30)
[2018-02-20] MEDS: Carbidopa/Levodop 25/100 MG TAB(*) PO SCH (09:34)
[2018-02-20] MEDS: Finasteride TAB* 5 MG PO SCH (09:35)
[2018-02-20] MEDS: Donepezil TAB* 5 MG PO SCH (09:37)
[2018-02-20] MEDS: Atorvastatin* 10 MG TAB PO SCH (09:38)
[2018-02-20] MEDS: Aspirin EC TAB* 81 MG TAB.EC PO SCH (09:38)
[2018-02-20] MEDS: Docusate CAP* 100 MG PO SCH (09:42)
[2018-02-20] MEDS: Enoxaparin(*) 40 MG/0.4 ML SYR SUBCUT SCH (10:34)
--- NOTE | 2018-02-20 11:29 | DS ---
CC: Dr. Jessica. * DISCHARGE SUMMARY: DATE OF ADMISSION: 02/14/18 DATE OF DISCHARGE: 02/20/18 PRINCIPAL DISCHARGE DIAGNOSES: 1. Fall. 2. Right hip fracture. 3. Parkinson's disease. 4. Acute urinary retention. SECONDARY DISCHARGE DIAGNOSES: 1. Hypertension. 2. BPH. 3. Hyperlipidemia. 4. Dementia. PHYSICAL EXAMINATION AT THE TIME OF DISCHARGE: Temperature 97.6, heart rate 77 , respiratory rate 18, pulse ox 97% on room air, blood pressure 106/93. General : Alert, pleasant man, in no distress with more expressive face this morning. No distress. He responds to simple questions appropriately and knows his name and the place. He has a pill rolling tremor and some rigidity. HEENT: Pupils are equal, round, and reactive to light. Oral mucosa is moist. Neck: No JVP. No cervical adenopathy. Chest: Regular rate and rhythm. No murmurs. PMI nondisplaced. Lungs: Clear bilaterally. Abdomen: Soft, nontender, nondistended. No CVA tenderness. A Hdez catheter is in place draining clear yellow urine. Extremities: No edema. Strength 5/5 throughout. Sensation intact. A right hip incision is clean and dry with no drainage or erythema. No randall are present. HOSPITAL COURSE BY PROBLEM: 1. Mechanical fall. Mr. Cronin has a long history of Parkinson's disease and sustained a mechanical fall at [facility] and was brought to the emergency department. A hip x-ray on 02/14/18 showed a nondisplaced right femoral neck fracture. He went to the OR with Dr. Mcclellan on 02/14/18 and underwent a cannulated screw fixation of the right femoral neck fracture and open reduction/internal fixation. He had an uneventful postoperative course. He walked with physical therapy, however, his physical therapy has been limited by his Parkinson's disease and bradykinesia. He has no randall in place, but is to follow up with Dr. Mcclellan. I have spoken with her office and her office will call [email or web address] with a followup appointment within 10 to 14 days after the surgery. 2. Acute urinary retention. Unfortunately, he failed a voiding trial and had acute urinary retention during this admission. He was continued on finasteride , unfortunately, his blood pressure did not tolerate Flomax, so this could not be added. I spoke with Dr. Carballo's office and requested that he be followed within 2 weeks for another voiding trial. He is being discharged with a Hdez catheter, which is new for him. 3. Parkinson's dementia. His postoperative course was complicated by increased symptoms of rigidity and bradykinesia. Neurology was consulted and recommended increasing his carbidopa/levodopa dose and discontinuing the selegiline, which was all done and he had improvement in his Parkinsonian symptoms. 4. Hypertension. He was continued on lisinopril and metoprolol. His blood pressure should be checked regularly and these may need to be deescalated as he had some borderline low blood pressures, which may be contributing to his falls. I recommend daily blood pressures for the next week and consideration of discontinuing his antihypertensive. DISPOSITION: Mr. Cronin is being discharged to [facility], where he will go to the [facility]. I have spoken with Dr. Mclcellan's office and Dr. Carballo's office who both will call you to schedule a followup appointment for him. He should also continue to follow up with Dr. Weiner as scheduled for his neurology appointments. [id number]/[facility] #: [id number] [facility] HEALTHVadim
== END 2018-02-20 11:15 | DRG 481 ==
LOC: ED 22:25 → SSU 02-14 02:57
PROVIDERS: ADMIT Hospitalist; ATTEND Internal Medicine
PROC: 0QS604Z Reposition Right Upper Femur with Internal Fixation Device, Open Approach (ICD-10-PCS; principal; 2018-02-14 14:00)
PROC: 0T9B70Z Drainage of Bladder with Drainage Device, Via Natural or Artificial Opening (ICD-10-PCS; 2018-02-16)
DX: S72.001A Fracture of unspecified part of neck of right femur, initial encounter for closed fracture (principal); R33.9 Retention of urine, unspecified; F05 Delirium due to known physiological condition; W17.89XA Other fall from one level to another, initial encounter; G20 Parkinson's disease; F02.80 Dementia in other diseases classified elsewhere, unspecified severity, without behavioral disturbance, psychotic disturbance, mood disturbance, and anxiety; I10 Essential (primary) hypertension; I25.10 Atherosclerotic heart disease of native coronary artery without angina pectoris; N40.0 Benign prostatic hyperplasia without lower urinary tract symptoms; E78.5 Hyperlipidemia, unspecified; Z98.52 Vasectomy status; Y92.008 Other place in unspecified non-institutional (private) residence as the place of occurrence of the external cause
CPT/HCPCS: 36415; 70450; 72192; 73523; 80048; 80053; 81003; 81015; 82140; 82607; 83735; 83880; 83921; 84443; 84484; 85025; 85610; 85730; 86140; 87086; 93005; 99284; A9270-GY; C1713; G8978-GP-CJ; G8979-GP-CH; G8987-GO-CL; G8988-GO-CJ; J0690; J1100; J1170; J1650; J1885; J2250; J2704; J2795; J3010